=== PATIENT | female | born 1945 | race Caucasian/White ===

== ENCOUNTER 2020-05-31 07:06 | Inpatient (IN) | payer MEDICARE ==
[~2020-05-31] VITALS: Ht 162.6 cm; Wt 100.0 kg
[~2020-05-31 07:06] MED LIST: AMLO-187 PO; HYDR-2145 PO
[2020-05-31] MEDS ORDERED: dilTIAZem IV PUSH 25 MG/5 ML VIAL IVP ONE (07:30)
[2020-05-31 07:34] LABS: BASO # 0.1 x10^3/uL (0.0-0.2); BASO % 1 % (0-3); EOS # 0.7 x10^3/uL (0.0-0.7); EOS % 8 % (0-3); HEMATOCRIT 42.8 % (36.0-47.0); HEMOGLOBIN 14.5 g/dL (12.0-15.5); LYMPH # 1.7 x10^3/uL (1.0-4.8); LYMPH % 22 % (24-48); MEAN CORPUSCULAR HEMOGLOBIN 30 pg (25-35); MEAN CORPUSCULAR HGB CONC 34 g/dL (31-37); MEAN CORPUSCULAR VOLUME 87 fL (79-100); MONO # 0.7 x10^3/uL (0.0-1.1); MONO % 10 % (0-9); NEUT # 4.6 x10^3/uL (1.8-7.7); NEUT % 59 % (31-73); PLATELET COUNT 287 x10^3/uL (140-400); RED CELL DISTRIBUTION WIDTH 15.4 % (11.5-14.5); WHITE BLOOD COUNT 7.8 x10^3/uL (4.0-11.0)
--- NOTE | 2020-05-31 07:37 | PHYS DOC ---
Past Medical History Past Medical History: Hypertension Additional Past Medical Histor: heart murmur, COVID 19 Past Surgical History: Hysterectomy Smoking Status: Never Smoker Alcohol Use: None General Adult EDM: Chief Complaint: SHORTNESS OF BREATH HPI: HPI: Patient is a 74 year old female who was brought here by EMS from home due to trouble breathing and left arm tingling sensation. EMS did an EKG on route, showed atrial fibrillation with RVR. Patient denies any chest pain, she denies any history of atrial fibrillation. Patient was admitted here on April 02, 2020, diagnosed with COVID-19 infection. Patient says she did get better from the infection. Patient denies any abdominal pain, no nausea vomiting. Patient denied headache, no cough, no fever. Review of Systems: Review of Systems: Constitutional: Denies fever or chills. [] Eyes: Denies change in visual acuity. [] HENT: Denies nasal congestion or sore throat. [] Respiratory: Denies cough, positive for trouble breathing Cardiovascular: Denies chest pain or edema. [] GI: Denies abdominal pain, nausea, vomiting, bloody stools or diarrhea. [] : Denies dysuria. [] Musculoskeletal: Denies back pain or joint pain. [] Integument: Denies rash. [] Neurologic: Denies headache, focal weakness or sensory changes. [] Endocrine: Denies polyuria or polydipsia. [] Lymphatic: Denies swollen glands. [] Psychiatric: Denies depression or anxiety. [] Heart Score: Risk Factors: Risk Factors: DM, Current or recent (<one month) smoker, HTN, HLP, family history of CAD, obesity. Risk Scores: Score 0 - 3: 2.5% MACE over next 6 weeks - Discharge Home Score 4 - 6: 20.3% MACE over next 6 weeks - Admit for Clinical Observation Score 7 - 10: 72.7% MACE over next 6 weeks - Early Invasive Strategies Current Medications: Current Medications Medications (Trade) Dose Ordered Sig/Sherrill Start Time Stop Time Status Last Admin Dose Admin Diltiazem HCl (Cardizem Iv Push) 20 mg 1X ONCE 05/31/20 07:30 05/31/20 07:31 DC Allergies: Allergies: Allergies Coded Allergies Type Severity Reaction Last Updated Verified lisinopril Allergy Unknown 04/02/20 Yes Physical Exam: PE: Constitutional: Well developed, well nourished, no acute distress, non-toxic appearance. [] HENT: Normocephalic, atraumatic, bilateral external ears normal, oropharynx moist, no oral exudates, nose normal. [] Eyes: PERRLA, EOMI, conjunctiva normal, no discharge. [] Neck: Normal range of motion, no tenderness, supple, no stridor. [] Cardiovascular:Heart rate regular rhythm, no murmur [] Lungs & Thorax: Bilateral breath sounds clear to auscultation [] Abdomen: Bowel sounds normal, soft, no tenderness, no masses, no pulsatile masses. [] Skin: Warm, dry, no erythema, no rash. [] Back: No tenderness, no CVA tenderness. [] Extremities: No tenderness, no cyanosis, no clubbing, ROM intact, no edema. [] Neurologic: Alert and oriented X 3, normal motor function, normal sensory function, no focal deficits noted. [] Psychologic: Affect normal, judgement normal, mood normal. [] Current Patient Data: Labs: Laboratory Tests Test 05/31/20 07:21 White Blood Count 7.8 x10^3/uL Red Blood Count 4.90 x10^6/uL Hemoglobin 14.5 g/dL Hematocrit 42.8 % Mean Corpuscular Volume 87 fL Mean Corpuscular Hemoglobin 30 pg Mean Corpuscular Hemoglobin Concent 34 g/dL Red Cell Distribution Width 15.4 % Platelet Count 287 x10^3/uL Neutrophils (%) (Auto) 59 % Lymphocytes (%) (Auto) 22 % Monocytes (%) (Auto) 10 % Eosinophils (%) (Auto) 8 % Basophils (%) (Auto) 1 % Neutrophils # (Auto) 4.6 x10^3/uL Lymphocytes # (Auto) 1.7 x10^3/uL Monocytes # (Auto) 0.7 x10^3/uL Eosinophils # (Auto) 0.7 x10^3/uL Basophils # (Auto) 0.1 x10^3/uL Sodium Level 139 mmol/L Potassium Level 3.2 mmol/L Chloride Level 102 mmol/L Carbon Dioxide Level 24 mmol/L Anion Gap 13 Blood Urea Nitrogen 22 mg/dL Creatinine 1.1 mg/dL Estimated GFR (Cockcroft-Gault) 48.4 BUN/Creatinine Ratio 20 Glucose Level 116 mg/dL Calcium Level 9.9 mg/dL Magnesium Level 2.0 mg/dL Total Bilirubin 0.9 mg/dL Aspartate Amino Transf (AST/SGOT) 17 U/L Alanine Aminotransferase (ALT/SGPT) 21 U/L Alkaline Phosphatase 81 U/L Troponin I Quantitative < 0.017 ng/mL AA-Dgs-S-Type Natriuretic Peptide 157 pg/mL Total Protein 7.4 g/dL Albumin 3.4 g/dL Albumin/Globulin Ratio 0.9 Lipase 243 U/L Thyroid Stimulating Hormone (TSH) 3.658 uIU/mL Free Thyroxine 1.10 ng/dL Current Medications Medications (Trade) Dose Ordered Sig/Sherrill Route PRN Reason Start Time Stop Time Status Last Admin Dose Admin Diltiazem HCl (Cardizem Iv Push) 20 mg 1X ONCE IVP 05/31/20 07:30 05/31/20 07:31 DC 05/31/20 07:34 Diltiazem HCl 125 mg/Sodium Chloride 125 ml @ 5 mls/hr CONT PRN IV SEE I/O RECORD 05/31/20 08:30 05/31/20 08:36 Potassium Chloride (Klor-Con) 40 meq 1X ONCE PO 05/31/20 08:30 05/31/20 08:31 DC 05/31/20 08:34 Sodium Chloride 1,000 ml @ 1,000 mls/hr 1X ONCE IV 05/31/20 08:30 05/31/20 09:29 DC 05/31/20 08:36 Iohexol (Omnipaque 350 Mg/ml) 90 ml 1X ONCE IV 05/31/20 08:30 05/31/20 08:34 DC 05/31/20 09:00 Info (CONTRAST GIVEN -- Rx MONITORING) 1 each PRN DAILY PRN MC SEE COMMENTS 05/31/20 08:45 06/02/20 08:44 Digoxin (Lanoxin) 500 mcg 1X ONCE IV 05/31/20 09:45 05/31/20 09:46 DC Vital Signs: Vital Signs Date Time Temp Pulse Resp B/P (MAP) Pulse Ox O2 Delivery O2 Flow Rate FiO2 05/31/20 07:06 97.5 142 18 142/67 (92) 99 Room Air 97.5 EKG: EKG: EKG was done at 715, heart rate of 149 bpm, atrial fibrillation with RVR, no ST [facility] Radiology/Procedures: Radiology/Procedures: [][id number] [place] [address] IMAGING REPORT Signed PATIENT: NEW MURPHYUNT: [id number] : 1945 LOCATION: ER AGE: 74 SEX: F EXAM STATUS: REG ER ORD. PHYSICIAN: BLANCHE CHRISTINA DO REASON: chest pain PROCEDURE: PORTABLE CHEST 1V AP chest x-ray HISTORY: Chest pain. COMPARISON: Chest x-ray April 02, 2020. FINDINGS: Heart size normal. Aortic arch calcified plaque and mild tortuosity. No pneumothorax or pleural effusions. The left lower lobe opacity on the prior exam has resolved. The right lower lobe opacity on the prior exam has decreased, there is mild residual opacity remaining. Small calcified granuloma right apex stable. Bones unremarkable. IMPRESSION: Improved aeration at the lung bases, the left lower lobe infiltrate has resolved, the right lower lobe infiltrate has decreased. Electronically signed by: Eli Jerome MD (05/31/2020 7:54 AM) [id number] DICTATED and SIGNED BY: ELI JEROME MD DATE: 05/31/20 [id number] [id number] [place], [place] [id number] IMAGING REPORT Signed PATIENT: NEW MURPHYUNT: [id number] : 1945 LOCATION: ER AGE: 74 SEX: F EXAM STATUS: REG ER ORD. PHYSICIAN: BLANCHE CHRISTINA DO REASON: SOA, CHEST PAIN, TACHYPNIA, TACHYCARDIA PROCEDURE: CT ANGIOGRAPHY CHEST Examination: CT angiography chest with IV contrast HISTORY: History of shortness of breath, chest pain, tachycardia, tachypnea COMPARISON: None available TECHNIQUE: Axial CT and radiographic images of chest were performed with IV contrast. Coronal and sagittal 3-D MIP reformats performed Exposure: One or more of the following individualized dose reduction techniques were utilized for this examination: 1. Automated exposure control 2. Adjustment of the mA and/or kV according to patient size 3. Use of iterative reconstruction technique FINDINGS: The visualized third and grossly appears unremarkable. The central airways grossly appears unremarkable. The ascending aorta measures 4 cm in transverse dimension. Heart size grossly appears unremarkable. Mild coronary artery calcifications There is no evidence of filling defect identified in the main pulmonary arterial trunk and right and left main pulmonary arteries and the visualized lobar, segmental branches of the pulmonary arteries. Few nodular tiny airspace opacities identified in the left lower lobe of the lung likely atelectasis or infiltrates. 3 mm nodule left lower lobe of the lung. The visualized liver, adrenals grossly appears unremarkable. There is a cystic structure identified in the anterior aspect of the spleen measuring 2.2 cm could be a cyst Moderate degenerative changes thoracic spine. IMPRESSION: 1. No evidence of pulmonary embolism. 2. Few nodular airspace opacities identified in the left lower lobe of the lung likely atelectasis or infiltrates. Follow-up to resolution. 3. 3 mm nodule left lower lobe of the lung. Follow-up per Fleischner Society guidelines with a follow-up CT in 6-12 months. 4. Mild aneurysmal change ascending aorta. Electronically signed by: Chivo Marshall MD (05/31/2020 9:41 AM) [id number] DICTATED and SIGNED BY: CHIVO MARSHALL MD DATE: 05/31/20 [id number] Course & Med Decision Making: Course & Med Decision Making Pertinent Labs and Imaging studies reviewed. (See chart for details) Patient is a 74-year-old female who presented to ER due to trouble breathing, left arm tingling sensation, she was found to have A. fib with RVR. Patient was started on Cardizem IV bolus and Cardizem drip. CTA her chest did not show any evidence of PE. Patient had Covid infection 2 months ago. Patient will be admitted to hospital, cardiology be consulted for atrial fibrillation. Discussed with Dr. Moss, hospitalist, he will admit the patient for further evaluation and treatment. Maribel Disclaimer: Maribel Disclaimer: This electronic medical record was generated, in whole or in part, using a voice recognition dictation system. Departure Departure Impression: Primary Impression: Atrial fibrillation with RVR Disposition: ADMITTED INPT THIS HOSP Admitting Physician: [facility] (Dr. Moss) Condition: IMPROVED Referrals: MARY WILD (PCP) BLANCHE CHRISTINA DO May 31, 2020 07:37
[2020-05-31 07:51] LABS: CALCIUM 9.9 mg/dL (8.5-10.1); CREATININE 1.1 mg/dL (0.6-1.0); GFR 48.4; POTASSIUM 3.2 mmol/L (3.5-5.1)
[2020-05-31 07:56] LABS: ALBUMIN 3.4 g/dL (3.4-5.0); ALBUMIN/GLOBULIN RATIO 0.9 (1.0-1.7); TOTAL BILIRUBIN 0.9 mg/dL (0.2-1.0); TOTAL PROTEIN 7.4 g/dL (6.4-8.2)
--- NOTE | 2020-05-31 07:57 | RAD ---
AP chest x-ray HISTORY: Chest pain. COMPARISON: Chest x-ray April 02, 2020. FINDINGS: Heart size normal. Aortic arch calcified plaque and mild tortuosity. No pneumothorax or ple ural effusions. The left lower lobe opacity on the prior exam has resolved. The right lower lobe opac ity on the prior exam has decreased, there is mild residual opacity remaining. Small calcified granul best right apex stable. Bones unremarkable. IMPRESSION: Improved aeration at the lung bases, the left lower lobe infiltrate has resolved, the rig ht lower lobe infiltrate has decreased. Electronically signed by: Christian Jerome MD (05/31/2020 7:54 AM) [id number]
[2020-05-31 08:02] LABS: FREE T4 1.1 ng/dL (0.76-1.46); THYROID STIM HORMONE (TSH) 3.658 uIU/mL (0.358-3.74)
[2020-05-31] MEDS ORDERED: IV NORMAL SALINE 1000ML BAG 1,000 ML IV ONE (08:30)
[2020-05-31] MEDS ORDERED: IOHEXOL 350 MG/ML 100 ML VIAL. IV ONE (08:30)
[2020-05-31] MEDS ORDERED: POTASSIUM CHLORIDE 10 MEQ TABLET.ER. PO ONE (08:30)
[2020-05-31] MEDS ORDERED: CONTRAST GIVEN. MC PRN (08:45)
--- NOTE | 2020-05-31 08:54 | EKG ---
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
[2020-05-31 09:36] LABS: BILIRUBIN,URINE NEGATIVE (NEG); CLARITY,URINE CLEAR; COLOR,URINE YELLOW; NITRITE,URINE NEGATIVE (NEG); PH,URINE 6.5 (<5.0-8.0); PROTEIN,URINE NEGATIVE (NEG-TRACE); UROBILINOGEN,URINE 0.2 mg/dL (0.2 mg/dL)
--- NOTE | 2020-05-31 09:44 | RAD ---
Examination: CT angiography chest with IV contrast HISTORY: History of shortness of breath, chest pain, tachycardia, tachypnea COMPARISON: None available TECHNIQUE: Axial CT and radiographic images of chest were performed with IV contrast. Coronal and sag ittal 3-D MIP reformats performed Exposure: One or more of the following individualized dose reduction techniques were utilized for thi s examination: 1. Automated exposure control 2. Adjustment of the mA and/or kV according to patient size 3. Use of iterative reconstruction technique FINDINGS: The visualized third and grossly appears unremarkable. The central airways grossly appears unremarkab le. The ascending aorta measures 4 cm in transverse dimension. Heart size grossly appears unremarkabl e. Mild coronary artery calcifications There is no evidence of filling defect identified in the main pulmonary arterial trunk and right and left main pulmonary arteries and the visualized lobar, segmental branches of the pulmonary arteries. Few nodular tiny airspace opacities identified in the left lower lobe of the lung likely atelectasis or infiltrates. 3 mm nodule left lower lobe of the lung. The visualized liver, adrenals grossly appea rs unremarkable. There is a cystic structure identified in the anterior aspect of the spleen measurin g 2.2 cm could be a cyst Moderate degenerative changes thoracic spine. IMPRESSION: 1. No evidence of pulmonary embolism. 2. Few nodular airspace opacities identified in the left lower lobe of the lung likely atelectasis o r infiltrates. Follow-up to resolution. 3. 3 mm nodule left lower lobe of the lung. Follow-up per Fleischner Society guidelines with a follo w-up CT in 6-12 months. 4. Mild aneurysmal change ascending aorta. Electronically signed by: Chivo Marshall MD (05/31/2020 9:41 AM) [id number]
[2020-05-31] MEDS ORDERED: DIGOXIN IV 500 MCG/2 ML AMPUL. IV ONE (09:45)
[2020-05-31 09:51] LABS: RBC,URINE OCC /HPF (0-2)
[2020-05-31 09:52] LABS: BACTERIA,URINE FEW /HPF (0-FEW)
--- NOTE | 2020-05-31 10:20 | PDOC2 ---
LUZ MARINA SIGALA ELECTRICAL CAD TECHNICIAN 05/31/20 1020: CARDIAC CONSULT DATE OF CONSULT Date of Consult DATE: 05/31/20 TIME: 1130 REASON FOR CONSULT Reason for Consult: AFIB RVR REFERRING PHYSICIAN Referring Physician: Jean SOURCE Source: Chart review, Patient HISTORY OF PRESENT ILLNESS HISTORY OF PRESENT ILLNESS This is a pleasant 74 yo female admitted for complains of palpitations. She woke up this morning and her monitor shows that her HR was fast and irregular. Also with SOA and palpitations and dizziness. No nausea or vomiting. No recent fever or chills. No Increased leg swelling. No prior test for CRISTY. No recent reese geries. No hx of CVA or CAD. No falls, injury, arrhythmias or past syncope. No exertional CP and no MCRAE. No hx of VTE. She takes norvasc and intermittent use of ASA. She did have Covid-19 on 04/02/2020. PAST MEDICAL HISTORY Cardiovascular: HTN Pulmonary: Pneumonia, Other (Covid-19) CENTRAL NERVOUS SYSTEM: Other (No pertinent history) GI: Constipation Heme/Onc: No pertinent hx Hepatobiliary: Hep A/B/C (as a child) Psych: No pertinent hx Musculoskeletal: Osteoarthritis Rheumatologic: No pertinent hx Infectious disease: No pertinent hx Renal/: UTI Endocrine: No pertinent hx Dermatology: No pertinent hx PAST SURGICAL HISTORY Past Surgical History: Arthroscopy (right ankle), , Hysterectomy FAMILY HISTORY Family History: Heart Disease (mother CHF) SOCIAL HISTORY Smoke: No ALCOHOL: none Drugs: None Lives: with Family (spouse) CURRENT MEDICATIONS CURRENT MEDICATIONS Current Medications Medications (Trade) Dose Ordered Sig/Sherrill Route PRN Reason Start Time Stop Time Status Last Admin Dose Admin Diltiazem HCl (Cardizem Iv Push) 20 mg 1X ONCE IVP 05/31/20 07:30 05/31/20 07:31 DC 05/31/20 07:34 Diltiazem HCl 125 mg/Sodium Chloride 125 ml @ 5 mls/hr CONT PRN IV SEE I/O RECORD 05/31/20 08:30 05/31/20 08:36 Potassium Chloride (Klor-Con) 40 meq 1X ONCE PO 05/31/20 08:30 05/31/20 08:31 DC 05/31/20 08:34 Sodium Chloride 1,000 ml @ 1,000 mls/hr 1X ONCE IV 05/31/20 08:30 05/31/20 09:29 DC 05/31/20 08:36 Iohexol (Omnipaque 350 Mg/ml) 90 ml 1X ONCE IV 05/31/20 08:30 05/31/20 08:34 DC 05/31/20 09:00 Digoxin (Lanoxin) 500 mcg 1X ONCE IV 05/31/20 09:45 05/31/20 09:46 DC 05/31/20 09:57 ALLERGIES ALLERGIES: Coded Allergies: lisinopril (Verified Allergy, Unknown, 04/02/20) ROS Review of System 14 point ROS evaluated with pertinent positives noted per HPI PHYSICAL EXAM General: Alert, Oriented X3, Cooperative, No acute distress HEENT: Atraumatic, Mucous membr. moist/pink Lungs: Clear to auscultation, Normal air movement Heart: Regular rate (SR), Normal S1, Normal S2, No murmurs Abdomen: Soft, No tenderness Extremities: No cyanosis, No edema Skin: No breakdown, No significant lesion Neuro: Normal speech, Sensation intact Psych/Mental Status: Mental status NL, Mood NL MUSCULOSKELETAL: Osteoarthritic changes both hands VITALS/I&O VITALS/I&O: Vital Signs Date Time Temp Pulse Resp B/P (MAP) Pulse Ox O2 Delivery O2 Flow Rate FiO2 05/31/20 09:57 117 144/79 05/31/20 07:06 97.5 18 99 Room Air 97.5 LABS Lab: Laboratory Tests Test 05/31/20 07:21 05/31/20 09:27 White Blood Count 7.8 x10^3/uL (4.0-11.0) Red Blood Count 4.90 x10^6/uL (3.50-5.40) Hemoglobin 14.5 g/dL (12.0-15.5) Hematocrit 42.8 % (36.0-47.0) Mean Corpuscular Volume 87 fL (79-100) Mean Corpuscular Hemoglobin 30 pg (25-35) Mean Corpuscular Hemoglobin Concent 34 g/dL (31-37) Red Cell Distribution Width 15.4 % (11.5-14.5) H Platelet Count 287 x10^3/uL (140-400) Neutrophils (%) (Auto) 59 % (31-73) Lymphocytes (%) (Auto) 22 % (24-48) L Monocytes (%) (Auto) 10 % (0-9) H Eosinophils (%) (Auto) 8 % (0-3) H Basophils (%) (Auto) 1 % (0-3) Neutrophils # (Auto) 4.6 x10^3/uL (1.8-7.7) Lymphocytes # (Auto) 1.7 x10^3/uL (1.0-4.8) Monocytes # (Auto) 0.7 x10^3/uL (0.0-1.1) Eosinophils # (Auto) 0.7 x10^3/uL (0.0-0.7) Basophils # (Auto) 0.1 x10^3/uL (0.0-0.2) Sodium Level 139 mmol/L (136-145) Potassium Level 3.2 mmol/L (3.5-5.1) L Chloride Level 102 mmol/L (98-107) Carbon Dioxide Level 24 mmol/L (21-32) Anion Gap 13 (6-14) Blood Urea Nitrogen 22 mg/dL (7-20) H Creatinine 1.1 mg/dL (0.6-1.0) H Estimated GFR (Cockcroft-Gault) 48.4 BUN/Creatinine Ratio 20 (6-20) Glucose Level 116 mg/dL (70-99) H Calcium Level 9.9 mg/dL (8.5-10.1) Magnesium Level 2.0 mg/dL (1.8-2.4) Total Bilirubin 0.9 mg/dL (0.2-1.0) Aspartate Amino Transferase (AST) 17 U/L (15-37) Alanine Aminotransferase (ALT) 21 U/L (14-59) Alkaline Phosphatase 81 U/L (46-116) Troponin I Quantitative < 0.017 ng/mL (0.000-0.055) MF-[id number]-[id number]-Type Natriuretic Peptide 157 pg/mL (0-449) Total Protein 7.4 g/dL (6.4-8.2) Albumin 3.4 g/dL (3.4-5.0) Albumin/Globulin Ratio 0.9 (1.0-1.7) L Lipase 243 U/L (73-393) Thyroid Stimulating Hormone (TSH) 3.658 uIU/mL (0.358-3.74) Free Thyroxine 1.10 ng/dL (0.76-1.46) Urine Collection Type Unknown Urine Color Yellow Urine Clarity Clear Urine pH 6.5 (<5.0-8.0) Urine Specific Lead 1.020 (1.000-1.030) Urine Protein Negative mg/dL (NEG-TRACE) Urine Glucose (UA) Negative mg/dL (NEG) Urine Ketones (Stick) Trace mg/dL (NEG) Urine Blood Negative (NEG) Urine Nitrite Negative (NEG) Urine Bilirubin Negative (NEG) Urine Urobilinogen Dipstick 0.2 mg/dL (0.2 mg/dL) Urine Leukocyte Esterase Small (NEG) Urine RBC Occ /HPF (0-2) Urine WBC 1-4 /HPF (0-4) Urine Squamous Epithelial Cells Many /LPF Urine Bacteria Few /HPF (0-FEW) Urine Mucus Slight /LPF Laboratory Tests 05/31/20 07:21 Laboratory Tests 05/31/20 07:21 ASSESSMENT/PLAN ASSESSMENT/PLAN 1. AFIB RVR: Refractory with digoxin and cardizem drip and converted to SR after IV lopressor. New onset 2. HTN: on home norvasc. 3. Mild KE 4. Mild troponin elevation: Peaked at 0.09. Due to RVR. Now SR, EKG SR with no acute ST-T wave changes. Demand mediated. CP free 5. Recovered Covid-19: 03/2020 Recommendations 1. Metoprolol tartrate 25 mg bid. Full dose ECASA 2. DC cardizem drip 3. MCOT and will note AFIB burden and guide need for anticoagulation 4. Consider outpt CRISTY w/u 5. No further norvasc with start of BB 6. Outpt ischemic workup. Follow up in office as scheduled 7. May DC this evening if TTE does not have any significant changes. 8. TTE and FLP ALANIS RAMIREZ MD 06/01/20 0853: CARDIAC CONSULT ASSESSMENT/PLAN ASSESSMENT/PLAN Patient seen and examined 05/31/20. Agree with VISUALLY IMPAIRED TEACHER's assessment and plan. Atrial fibrillation, newly diagnosed with RVR, presently back in sinus rhythm. Slight troponin elevation probably demand ischemia. Stop Cardizem drip and start metoprolol. 2D echo showed normal LV systolic function without any wall motion abnormalities. Agree with outpatient ischemic evaluation and event monitor recording. Thank you for your consultation LUZ MARINA SIGALA APRN May 31, 2020 10:20 ALANIS RAMIREZ MD Jun 01, 2020 08:53
[2020-05-31] MEDS ORDERED: METOPROLOL IV PUSH 5 MG/5 ML VIAL. IVP ONE (10:30)
[2020-05-31 11:05] VITALS: BP 134/95
--- NOTE | 2020-05-31 11:05 | PDOC1 ---
History and Physical Date of Admission Date of Admission DATE: 05/31/20 TIME: 11:05 Identification/Chief Complaint Chief Complaint seen in er with a fib rvr 74 year old female who was brought here by EMS from home due to trouble breathing and left arm tingling sensation. EMS did an EKG on route, showed atrial fibrillation with RVR. Patient denies any chest pain, she denies any history of atrial fibrillation. left arm tingling has been present for a few months since she had covid 19 admitted here on April 02, 2020, diagnosed with COVID-19 infection. Patient denies any abdominal pain, no nausea vomiting. Patient denied headache, no cough, no fever. cta neg for pe in er , cardiology consulted Past Medical History Past Medical History Past Medical History Past Medical History: Hypertension Additional Past Medical Histor: heart murmur, COVID 19 Past Surgical History: Hysterectomy Smoking Status: Never Smoker Alcohol Use: None Past Medical History Past Medical History Hypertension Past Surgical History Past Surgical History Hysterectomy Social History Smoke: No ALCOHOL: none Drugs: None fhx obesity Cardiovascular: HTN Musculoskeletal: Osteoarthritis Family History Family History: Hypertension Social History Smoke: No ALCOHOL: none Drugs: None Current Problem List Problem List Problems Medical Problems: (1) Atrial fibrillation with RVR Status: Acute Current Medications Current Medications Current Medications Diltiazem HCl (Cardizem Iv Push) 20 mg 1X ONCE IVP Last administered on 05/31/20at 07:34; Start 05/31/20 at 07:30; Stop 05/31/20 at 07:31; Status DC Diltiazem HCl 125 mg/Sodium Chloride 125 ml @ 5 mls/hr CONT PRN IV SEE I/O RECORD Last administered on 05/31/20at 08:36; Start 05/31/20 at 08:30; Stop 05/31/20 at 10:20; Status DC Potassium Chloride (Klor-Con) 40 meq 1X ONCE PO Last administered on 05/31/20at 08:34; Start 05/31/20 at 08:30; Stop 05/31/20 at 08:31; Status DC Sodium Chloride 1,000 ml @ 1,000 mls/hr 1X ONCE IV Last administered on 05/31/20at 08:36; Start 05/31/20 at 08:30; Stop 05/31/20 at 09:29; Status DC Iohexol (Omnipaque 350 Mg/ml) 90 ml 1X ONCE IV Last administered on 05/31/20at 09:00; Start 05/31/20 at 08:30; Stop 05/31/20 at 08:34; Status DC Info (CONTRAST GIVEN -- Rx MONITORING) 1 each PRN DAILY PRN MC SEE COMMENTS; Start 05/31/20 at 08:45; Stop 06/02/20 at 08:44 Digoxin (Lanoxin) 500 mcg 1X ONCE IV Last administered on 05/31/20at 09:57; Start 05/31/20 at 09:45; Stop 05/31/20 at 09:46; Status DC Metoprolol Tartrate (Lopressor) 25 mg Q6HRS PO ; Start 05/31/20 at 12:00 Metoprolol Tartrate (Lopressor Vial) 5 mg 1X ONCE IVP ; Start 05/31/20 at 10:30; Stop 05/31/20 at 10:31; Status DC Active Scripts Active Hydrochlorothiazide Tablet (Hydrochlorothiazide) 25 Mg Tablet 25 Mg PO DAILY 30 Days Amlodipine Besylate 10 Mg Tablet 10 Mg PO DAILY 30 Days Allergies Allergies: Coded Allergies: lisinopril (Verified Allergy, Unknown, 04/02/20) ROS Review of System Constitutional: Denies fever or chills. [] Eyes: Denies change in visual acuity. [] HENT: Denies nasal congestion or sore throat. [] Respiratory: Denies cough, positive for trouble breathing Cardiovascular: Denies chest pain or edema. [] GI: Denies abdominal pain, nausea, vomiting, bloody stools or diarrhea. [] : Denies dysuria. [] Musculoskeletal: Denies back pain or joint pain. [] Integument: Denies rash. [] Neurologic: Denies headache, focal weakness or sensory changes. [] Endocrine: Denies polyuria or polydipsia. [] Lymphatic: Denies swollen glands. [] Psychiatric: Denies depression or anxiety. [] 14 pt ros otherwise neg Physical Exam Physical Exam Constitutional: Well developed, well nourished, no acute distress, non-toxic appearance. [] HENT: Normocephalic, atraumatic, bilateral external ears normal, oropharynx moist, no oral exudates, nose normal. [] Eyes: PERRLA, EOMI, conjunctiva normal, no discharge. [] Neck: Normal range of motion, no tenderness, supple, no stridor. [] Cardiovascular:tachy rate irrr 124, no murmur [] Lungs & Thorax: Bilateral breath sounds clear to auscultation [] Abdomen: Bowel sounds normal, soft, no tenderness, no masses, no pulsatile masses. [] Skin: Warm, dry, no erythema, no rash. [] Back: No tenderness, no CVA tenderness. [] Extremities: No tenderness, no cyanosis, no clubbing, ROM intact, no edema. [] Neurologic: Alert and oriented X 3, normal motor function, normal sensory function, no focal deficits noted. [] Psychologic: Affect normal, judgment normal, mood normal. [] General: No acute distress Lungs: Clear to auscultation, Normal air movement Heart: irregularly irregular Breasts: Not examined Abdomen: Normal bowel sounds, Soft, No tenderness Rectal Exam: not examined PELVIC: Examination not indicated Extremities: No cyanosis Skin: No breakdown Neuro: Normal speech, Cranial nerves 3-12 NL Psych/Mental Status: Mental status NL, Mood NL Vitals Vitals Vital Signs Date Time Temp Pulse Resp B/P (MAP) Pulse Ox O2 Delivery O2 Flow Rate FiO2 05/31/20 09:57 117 144/79 05/31/20 07:06 97.5 18 99 Room Air 97.5 Labs Labs Laboratory Tests Test 05/31/20 07:21 05/31/20 09:27 White Blood Count 7.8 x10^3/uL (4.0-11.0) Red Blood Count 4.90 x10^6/uL (3.50-5.40) Hemoglobin 14.5 g/dL (12.0-15.5) Hematocrit 42.8 % (36.0-47.0) Mean Corpuscular Volume 87 fL (79-100) Mean Corpuscular Hemoglobin 30 pg (25-35) Mean Corpuscular Hemoglobin Concent 34 g/dL (31-37) Red Cell Distribution Width 15.4 % (11.5-14.5) Platelet Count 287 x10^3/uL (140-400) Neutrophils (%) (Auto) 59 % (31-73) Lymphocytes (%) (Auto) 22 % (24-48) Monocytes (%) (Auto) 10 % (0-9) Eosinophils (%) (Auto) 8 % (0-3) Basophils (%) (Auto) 1 % (0-3) Neutrophils # (Auto) 4.6 x10^3/uL (1.8-7.7) Lymphocytes # (Auto) 1.7 x10^3/uL (1.0-4.8) Monocytes # (Auto) 0.7 x10^3/uL (0.0-1.1) Eosinophils # (Auto) 0.7 x10^3/uL (0.0-0.7) Basophils # (Auto) 0.1 x10^3/uL (0.0-0.2) Sodium Level 139 mmol/L (136-145) Potassium Level 3.2 mmol/L (3.5-5.1) Chloride Level 102 mmol/L (98-107) Carbon Dioxide Level 24 mmol/L (21-32) Anion Gap 13 (6-14) Blood Urea Nitrogen 22 mg/dL (7-20) Creatinine 1.1 mg/dL (0.6-1.0) Estimated GFR (Cockcroft-Gault) 48.4 BUN/Creatinine Ratio 20 (6-20) Glucose Level 116 mg/dL (70-99) Calcium Level 9.9 mg/dL (8.5-10.1) Magnesium Level 2.0 mg/dL (1.8-2.4) Total Bilirubin 0.9 mg/dL (0.2-1.0) Aspartate Amino Transf (AST/SGOT) 17 U/L (15-37) Alanine Aminotransferase (ALT/SGPT) 21 U/L (14-59) Alkaline Phosphatase 81 U/L (46-116) Troponin I Quantitative < 0.017 ng/mL (0.000-0.055) QQ-Cwo-H-Type Natriuretic Peptide 157 pg/mL (0-449) Total Protein 7.4 g/dL (6.4-8.2) Albumin 3.4 g/dL (3.4-5.0) Albumin/Globulin Ratio 0.9 (1.0-1.7) Lipase 243 U/L (73-393) Thyroid Stimulating Hormone (TSH) 3.658 uIU/mL (0.358-3.74) Free Thyroxine 1.10 ng/dL (0.76-1.46) Urine Collection Type Unknown Urine Color Yellow Urine Clarity Clear Urine pH 6.5 (<5.0-8.0) Urine Specific Hoffman 1.020 (1.000-1.030) Urine Protein Negative mg/dL (NEG-TRACE) Urine Glucose (UA) Negative mg/dL (NEG) Urine Ketones (Stick) Trace mg/dL (NEG) Urine Blood Negative (NEG) Urine Nitrite Negative (NEG) Urine Bilirubin Negative (NEG) Urine Urobilinogen Dipstick 0.2 mg/dL (0.2 mg/dL) Urine Leukocyte Esterase Small (NEG) Urine RBC Occ /HPF (0-2) Urine WBC 1-4 /HPF (0-4) Urine Squamous Epithelial Cells Many /LPF Urine Bacteria Few /HPF (0-FEW) Urine Mucus Slight /LPF Laboratory Tests Test 05/31/20 07:21 05/31/20 09:27 White Blood Count 7.8 x10^3/uL (4.0-11.0) Red Blood Count 4.90 x10^6/uL (3.50-5.40) Hemoglobin 14.5 g/dL (12.0-15.5) Hematocrit 42.8 % (36.0-47.0) Mean Corpuscular Volume 87 fL (79-100) Mean Corpuscular Hemoglobin 30 pg (25-35) Mean Corpuscular Hemoglobin Concent 34 g/dL (31-37) Red Cell Distribution Width 15.4 % (11.5-14.5) Platelet Count 287 x10^3/uL (140-400) Neutrophils (%) (Auto) 59 % (31-73) Lymphocytes (%) (Auto) 22 % (24-48) Monocytes (%) (Auto) 10 % (0-9) Eosinophils (%) (Auto) 8 % (0-3) Basophils (%) (Auto) 1 % (0-3) Neutrophils # (Auto) 4.6 x10^3/uL (1.8-7.7) Lymphocytes # (Auto) 1.7 x10^3/uL (1.0-4.8) Monocytes # (Auto) 0.7 x10^3/uL (0.0-1.1) Eosinophils # (Auto) 0.7 x10^3/uL (0.0-0.7) Basophils # (Auto) 0.1 x10^3/uL (0.0-0.2) Sodium Level 139 mmol/L (136-145) Potassium Level 3.2 mmol/L (3.5-5.1) Chloride Level 102 mmol/L (98-107) Carbon Dioxide Level 24 mmol/L (21-32) Anion Gap 13 (6-14) Blood Urea Nitrogen 22 mg/dL (7-20) Creatinine 1.1 mg/dL (0.6-1.0) Estimated GFR (Cockcroft-Gault) 48.4 BUN/Creatinine Ratio 20 (6-20) Glucose Level 116 mg/dL (70-99) Calcium Level 9.9 mg/dL (8.5-10.1) Magnesium Level 2.0 mg/dL (1.8-2.4) Total Bilirubin 0.9 mg/dL (0.2-1.0) Aspartate Amino Transf (AST/SGOT) 17 U/L (15-37) Alanine Aminotransferase (ALT/SGPT) 21 U/L (14-59) Alkaline Phosphatase 81 U/L (46-116) Troponin I Quantitative < 0.017 ng/mL (0.000-0.055) JB-Aup-Q-Type Natriuretic Peptide 157 pg/mL (0-449) Total Protein 7.4 g/dL (6.4-8.2) Albumin 3.4 g/dL (3.4-5.0) Albumin/Globulin Ratio 0.9 (1.0-1.7) Lipase 243 U/L (73-393) Thyroid Stimulating Hormone (TSH) 3.658 uIU/mL (0.358-3.74) Free Thyroxine 1.10 ng/dL (0.76-1.46) Urine Collection Type Unknown Urine Color Yellow Urine Clarity Clear Urine pH 6.5 (<5.0-8.0) Urine Specific Hoffman 1.020 (1.000-1.030) Urine Protein Negative mg/dL (NEG-TRACE) Urine Glucose (UA) Negative mg/dL (NEG) Urine Ketones (Stick) Trace mg/dL (NEG) Urine Blood Negative (NEG) Urine Nitrite Negative (NEG) Urine Bilirubin Negative (NEG) Urine Urobilinogen Dipstick 0.2 mg/dL (0.2 mg/dL) Urine Leukocyte Esterase Small (NEG) Urine RBC Occ /HPF (0-2) Urine WBC 1-4 /HPF (0-4) Urine Squamous Epithelial Cells Many /LPF Urine Bacteria Few /HPF (0-FEW) Urine Mucus Slight /LPF Images Images PATIENT: NEW MURPHYUNT: [id number] : 1945 LOCATION: ER AGE: 74 SEX: F EXAM STATUS: REG ER ORD. PHYSICIAN: BLANCHE CHRISTINA DO REASON: chest pain PROCEDURE: PORTABLE CHEST 1V AP chest x-ray HISTORY: Chest pain. COMPARISON: Chest x-ray April 02, 2020. FINDINGS: Heart size normal. Aortic arch calcified plaque and mild tortuosity. No pneumothorax or pleural effusions. The left lower lobe opacity on the prior exam has resolved. The right lower lobe opacity on the prior exam has decreased, there is mild residual opacity remaining. Small calcified granuloma right apex stable. Bones unremarkable. IMPRESSION: Improved aeration at the lung bases, the left lower lobe infiltrate has resolved, the right lower lobe infiltrate has decreased. Electronically signed by: Eli Jerome MD (05/31/2020 7:54 AM) [id number] DICTATED and SIGNED BY: ELI JEROME MD PATIENT: NEW MURPHYCOUNT: [id number] : 1945 LOCATION: ER AGE: 74 SEX: F EXAM STATUS: REG ER ORD. PHYSICIAN: BLANCHE CHRISTINA DO REASON: SOA, CHEST PAIN, TACHYPNIA, TACHYCARDIA PROCEDURE: CT ANGIOGRAPHY CHEST Examination: CT angiography chest with IV contrast HISTORY: History of shortness of breath, chest pain, tachycardia, tachypnea COMPARISON: None available TECHNIQUE: Axial CT and radiographic images of chest were performed with IV contrast. Coronal and sagittal 3-D MIP reformats performed Exposure: One or more of the following individualized dose reduction techniques were utilized for this examination: 1. Automated exposure control 2. Adjustment of the mA and/or kV according to patient size 3. Use of iterative reconstruction technique FINDINGS: The visualized third and grossly appears unremarkable. The central airways grossly appears unremarkable. The ascending aorta measures 4 cm in transverse dimension. Heart size grossly appears unremarkable. Mild coronary artery calcifications There is no evidence of filling defect identified in the main pulmonary arterial trunk and right and left main pulmonary arteries and the visualized lobar, segmental branches of the pulmonary arteries. Few nodular tiny airspace opacities identified in the left lower lobe of the lung likely atelectasis or infiltrates. 3 mm nodule left lower lobe of the lung. The visualized liver, adrenals grossly appears unremarkable. There is a cystic structure identified in the anterior aspect of the spleen measuring 2.2 cm could be a cyst Moderate degenerative changes thoracic spine. IMPRESSION: 1. No evidence of pulmonary embolism. 2. Few nodular airspace opacities identified in the left lower lobe of the lung likely atelectasis or infiltrates. Follow-up to resolution. 3. 3 mm nodule left lower lobe of the lung. Follow-up per Fleischner Society guidelines with a follow-up CT in 6-12 months. 4. Mild aneurysmal change ascending aorta. Electronically signed by: Chivo Marshall MD (05/31/2020 9:41 AM) [id number] DICTATED and SIGNED BY: CHIVO MARSHALL MD DATE: 05/31/20 [id number] VTE Prophylaxis Ordered VTE Prophylaxis Devices: Yes VTE Pharmacological Prophylaxi: Yes Assessment/Plan Assessment/Plan Impression: Atrial fibrillation with RVR MORBID OBESITY Hypertension hypokalemia, LIKELY DUE TO HCTZ mild troponin i elevation likelt type ii ischemia due to a fib rvr ACUTE RENAL INJURY, ACUTE VASOMOTOR NEPHROPATHY, BASELINE CR 0.29 MAR 2020 ADMITTED cvc bed CARDIOLOGY CONSULT ECHO SOON home meds free t4 HOLD NORVASC AND D/C HCTZ Avoid nephrotoxic meds dvt prophylaxis DICTATED Justifications for Admission Other Justification Failure of outpatient antibiotics, generalized weakness, PUI DANIEL ALMAZAN MD May 31, 2020 11:05
[2020-05-31] MEDS ORDERED: ALBUTEROL SULFATE 2.5 MG/3 ML NEBU. NEB PRN (12:00)
[2020-05-31] MEDS ORDERED: ACETAMINOPHEN 325 MG TABLET. PO PRN (12:00)
[2020-05-31] MEDS ORDERED: LORazepam 0.5 MG TABLET PO PRN (12:00)
[2020-05-31] MEDS ORDERED: ONDANSETRON PF 4 MG/2 ML VIAL. IV PRN (12:00)
[2020-05-31] MEDS ORDERED: MAG HYDROX/ALUMINUM HYD/SIMETH 30 ML ORAL.SUSP PO PRN (12:00)
[2020-05-31] MEDS ORDERED: guaiFENesin ORAL 200 MG/10 ML LIQUID. PO PRN (12:00)
[2020-05-31] MEDS ORDERED: 0.9 % SODIUM CHLORIDE 10 ML DISP.SYRIN. IV PRN (12:00)
[2020-05-31] MEDS ORDERED: METOPROLOL TART IMMED RELEASE 25 MG TABLET. PO SCH ×2 (12:00→21:00)
[2020-05-31] MEDS ORDERED: DOCUSATE SODIUM 100 MG CAPSULE. PO PRN (12:00)
[2020-05-31] MEDS ORDERED: SODIUM PHOSPHATES 19/7GM 133 ML ENEMA. PR PRN (12:00)
[2020-05-31] MEDS ORDERED: IV NORMAL SALINE 1000ML BAG 1,000 ML IV SCH (12:00)
[2020-05-31] MEDS ORDERED: HYDR12.59 PO (12:01)
[2020-05-31] MEDS ORDERED: AMLO5TAB4 PO (12:01)
--- NOTE | 2020-05-31 12:13 | EKG ---
[facility] [address] [place] [address] Test Date: 2020-05-31 Test Time: 12:10:12 Pat Name: NEW MURPHY Department: Room: 260 1 Gender: F Assistant Activities Director: KENDALL : 1945 Requested By: LUZ MARINA SIGALA Order Number: [id number] Reading MD: Measurements Intervals [place]ier Rate: 62 P: 90 WA: 130 QRS: 29 QRSD: 78 T: 56 QT: 396 QTc: 404 Interpretive Statements SINUS RHYTHM NORMAL ECG RI6.02 Compared to ECG 05/31/2020 07:13:21 T-wave abnormality no longer present Possible ischemia no longer present
[2020-05-31 15:00] VITALS: BP 155/78
--- NOTE | 2020-05-31 15:22 | HP ---
ADMIT DATE: 05/31/2020 CHIEF COMPLAINT: Rapid heart rate, trouble breathing. HISTORY OF PRESENT ILLNESS: This pleasant 74-year-old female with no previous history of AFib has been documented. Presented to the ER with shortness of breath and rapid heart rate. She was taken to the ER by ambulance. EKG at that time showed AFib with RVR. She was recently admitted in 03/2020 with COVID-19 infection. Since that time, she has felt somewhat tired. Denies any chest pain, abdominal pain, nausea, or vomiting. No fever or cough today. CTA was negative for PE in the Emergency Room. The patient was started on IV diltiazem by Dr. Pena in the ER and I discussed the patient's care with him. The patient was admitted and Cardiology was consulted. PAST MEDICAL HISTORY: Significant for hypertension and COVID-19 pneumonia. PAST SURGICAL HISTORY: Hysterectomy. SOCIAL HISTORY: She does not smoke or use alcohol or illicit drugs. FAMILY HISTORY: Positive for hypertension. CURRENT MEDICATIONS: Prior to admission include Norvasc and hydrochlorothiazide. ALLERGIES: LISINOPRIL. REVIEW OF SYSTEMS: Denies fever or chills. Denies visual change or loss. Denies nasal congestion, sore throat, cough, but has had some trouble breathing. Denies chest pain or edema. Denies abdominal pain, vomiting, bloody stools, or dysuria. Denies joint pain or back pain, rash, headache, focal weakness, polyuria or polydipsia. Denies swollen glands, depression, or anxiety. PHYSICAL EXAMINATION: GENERAL: Well-developed, well-nourished alert female in no acute distress. NECK: Supple. HEENT: Throat and pharynx are clear. LUNGS: Clear to auscultation. CARDIOVASCULAR: Tachycardic rhythm, irregular rate and rhythm without murmur. LUNGS: Bilateral breath sounds are clear. ABDOMEN: Soft, obese without tenderness. EXTREMITIES: Without clubbing, cyanosis or edema. Capillary refill is less than 2 seconds. BACK: Without CVA tenderness. NEUROLOGIC: She is alert and oriented, moves all extremities well. Affect is normal. Memory is normal. She is pleasant, in no acute distress. BREASTS: Not examined. RECTAL: Deferred. PELVIC: ____. SKIN: Without cyanosis. NEUROLOGIC: Cranial nerves 2 to 12 are grossly intact. Extraocular muscles are intact. Visual goldstein are equal to confrontation. Muscles of mastication are symmetric and strong bilaterally. LABORATORY DATA: Show a white count 7.8, hemoglobin 14.5, MCV of 87, platelets 297,000. Sodium is 139, potassium 3.2, chloride 102, bicarbonate 24, BUN 22, creatinine 1.1, glucose 116, magnesium 2.0, AST 17, ALT 21. Troponin is less than 0.017, total protein 7.4, albumin 3.4, TSH 3.65, free T4 of 1.1. UA; trace, small, leukocyte esterase is positive, nitrite is negative. Chest x-ray shows improved aeration of the lung bases. CT of the chest shows no evidence of PE. There is a 3-mm nodule on the lower lobe of the lung. 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 ASSESSMENT: 1. This is a pleasant 74-year-old female with no previous documented history of atrial fibrillation. She presents with Afib and RVR. 2. Morbid obesity. 3 Hypertension. 4. Mild hypokalemia, likely due to hydrochlorothiazide. We will discontinue hydrochlorothiazide and Norvasc. 5. Mild troponin I elevation likely type 2 ischemia due to AFib, RVR. 6. Acute renal injury, likely vasomotor nephropathy with baseline creatinine of 0.9. PLAN: Admit cvc bed. Cardiology consult. ok to d./c this evening Echo reviewed. Home meds, but hold Norvasc and hydrochlorothiazide. Avoid nephrotoxic meds. DVT prophylaxis with Lovenox. Anticipated length of stay 1 days. The patient is baseline ambulatory. DANIEL ALMAZAN MD DR: LUIS ANGEL/jose luis JOB#: [id number] / [id number] MARY Wang
--- NOTE | 2020-05-31 17:43 | CARD ---
MR#: [id number] Date of Study: 05/31/2020 Ordering Physician: LUZ MARINA SIGALA, Referring Physician: LUZ MARINA SIGALA, Tech: Caridad Blakerakeshkatherine, [facility] APPROVED REPORT EXAM: Two-dimensional and M-mode echocardiogram with Doppler and color Doppler. Other Information Quality : AverageHR: 61bpm INDICATION Atrial Fibrillation RISK FACTORS Hypertension 2D DIMENSIONS RVDd3.4 (2.9-3.5cm)Left Atrium(2D)2.5 (1.6-4.0cm) IVSd1.3 (0.7-1.1cm)Aortic Root(2D)3.6 (2.0-3.7cm) LVDd4.5 (3.9-5.9cm)LVOT Diameter2.2 (1.8-2.4cm) PWd1.3 (0.7-1.1cm)LVDs2.9 (2.5-4.0cm) FS (%) 36.4 %SV61.0 ml LVEF(%)66.2 (>50%) Aortic Valve AoV Peak Juanjo.130.7cm/sAoV VTI27.8cm AO Peak GR.6.8mmHgLVOT Peak Juanjo.104.4cm/s AO Mean GR.4mmHgAVA (VMAX)2.97cm2 Mitral Valve MV E Agueuhup17.1cm/sMV DECEL [id number] MV A Qrxgxinp54.3cm/sE/A Ratio0.7 Pulmonary Valve PV Peak Hhcwwxzo24.2cm/s Tricuspid Valve TR P. Skhzvqtd984ek/sRAP [id number] TR Peak Gr.59yxEwDMKJ07dnCb Pulmonary Vein S1 Lvrofolp06.8cm/sD2 Zybcifqe03.6cm/s PVa [id number] LEFT VENTRICLE The left ventricle is normal size. There is moderate concentric left ventricular hypertrophy. The lef t ventricular systolic function is normal. The Ejection Fraction is 55-60%. There is normal LV segmen jhoana wall motion. Transmitral Doppler flow pattern is Grade I-abnormal relaxation pattern. RIGHT VENTRICLE The right ventricle is normal size. There is normal right ventricular wall thickness. The right ventr icular systolic function is normal. ATRIA The left atrium size is normal. The right atrium is borderline dilated. The interatrial septum is int act with no evidence for an atrial septal defect or patent foramen ovale as noted on 2-D or Doppler i maging. AORTIC VALVE The aortic valve is normal in structure and function. Doppler and Color Flow revealed no significant aortic regurgitation. There is no significant aortic valvular stenosis. Calculated aortic valve area is 3.2 cm2 with maximum pressure gradient of 7 mmHg and mean pressure gradient of 4 mmHg. MITRAL VALVE The mitral valve is normal in structure and function. There is no evidence of mitral valve prolapse. There is no mitral valve stenosis. Doppler and Color-flow revealed trace mitral regurgitation. TRICUSPID VALVE The tricuspid valve is normal in structure and function. Doppler and Color Flow revealed trace tricus pid regurgitation with an estimated PAP of 23 mmHg. There is no tricuspid valve stenosis. PULMONIC VALVE The pulmonic valve is not well visualized. Doppler and Color Flow revealed trace pulmonic valvular re gurgitation. GREAT VESSELS The aortic root is borderline enlarged measuring 3.6 cm. The ascending aorta is Mildly dilated measur ing 3.7 cm. The IVC is normal in size and collapses >50% with inspiration. PERICARDIAL EFFUSION There is no evidence of significant pericardial effusion. Critical Notification Critical Value: No <Conclusion> The left ventricular systolic function is normal. The Ejection Fraction is 55-60%. There is normal LV segmental wall motion. Transmitral Doppler flow pattern is Grade I-abnormal relaxation pattern. Trace mitral regurgitation. Trace tricuspid regurgitation with an estimated PAP of 23 mmHg. There is no evidence of significant pericardial effusion. Signed by : Rashawn Arambula, Electronically Approved : 05/31/2020 17:43:25
[2020-05-31] MEDS ORDERED: METO50TA6 PO (17:58)
[2020-05-31] MEDS ORDERED: ASPI325T8 PO (17:59)
--- NOTE | 2020-05-31 18:31 | NUR ---
Discharge Note: NEW MURPHY Discharge instructions and discharge home medications reviewed with Patient and a copy given. Patient aware about planned for outpatient stress test and event monitor to be send to patient home discussed. Scheduled hospital follow up date tih Dr. Arambula given to patient. All questions have been answered and understanding verbalized. The following instructions and handouts were given: afib and cardiac diet. Discontinued iv line and catheter intact. Patient discharged to home with self care.
[2020-05-31 20:10] LABS: CHOLESTEROL/HDL RATIO 3.3
[2020-05-31] MEDS ORDERED: ENOXAPARIN 40 MG/0.4 ML SYRINGE. SQ SCH (21:00)
--- NOTE | 2020-05-31 21:19 | PDOC3 ---
Discharge Summary Date of Admission: May 31, 2020 Date of Discharge: May 31, 2020 Follow-Up: 3-5 days Admitting Diagnosis comment: CHIEF COMPLAINT: Rapid heart rate, trouble breathing. HISTORY OF PRESENT ILLNESS: This pleasant 74-year-old female with no previous history of AFib has been documented. Presented to the ER with shortness of breath and rapid heart rate. She was taken to the ER by ambulance. EKG at that time showed AFib with RVR. She was recently admitted in 03/2020 with COVID-19 infection. Since that time, she has felt somewhat tired. Denies any chest pain, abdominal pain, nausea, or vomiting. No fever or cough today. CTA was negative for PE in the Emergency Room. The patient was started on IV diltiazem by Dr. Pena in the ER and I discussed the patient's care with him. The patient was admitted and Cardiology was consulted. PAST MEDICAL HISTORY: Significant for hypertension and COVID-19 pneumonia. PAST SURGICAL HISTORY: Hysterectomy. SOCIAL HISTORY: She does not smoke or use alcohol or illicit drugs. FAMILY HISTORY: Positive for hypertension. CURRENT MEDICATIONS: Prior to admission include Norvasc and hydrochlorothiazide. ALLERGIES: LISINOPRIL. REVIEW OF SYSTEMS: Denies fever or chills. Denies visual change or loss. Denies nasal congestion, sore throat, cough, but has had some trouble breathing. Denies chest pain or edema. Denies abdominal pain, vomiting, bloody stools, or dysuria. Denies joint pain or back pain, rash, headache, focal weakness, polyuria or polydipsia. Denies swollen glands, depression, or anxiety. PHYSICAL EXAMINATION: GENERAL: Well-developed, well-nourished alert female in no acute distress. NECK: Supple. HEENT: Throat and pharynx are clear. LUNGS: Clear to auscultation. CARDIOVASCULAR: Tachycardic rhythm, irregular rate and rhythm without murmur. LUNGS: Bilateral breath sounds are clear. ABDOMEN: Soft, obese without tenderness. EXTREMITIES: Without clubbing, cyanosis or edema. Capillary refill is less than 2 seconds. BACK: Without CVA tenderness. NEUROLOGIC: She is alert and oriented, moves all extremities well. Affect is normal. Memory is normal. She is pleasant, in no acute distress. BREASTS: Not examined. RECTAL: Deferred. PELVIC: ____. SKIN: Without cyanosis. NEUROLOGIC: Cranial nerves 2 to 12 are grossly intact. Extraocular muscles are intact. Visual goldstein are equal to confrontation. Muscles of mastication are symmetric and strong bilaterally. LABORATORY DATA: Show a white count 7.8, hemoglobin 14.5, MCV of 87, platelets 297,000. Sodium is 139, potassium 3.2, chloride 102, bicarbonate 24, BUN 22, creatinine 1.1, glucose 116, magnesium 2.0, AST 17, ALT 21. Troponin is less than 0.017, total protein 7.4, albumin 3.4, TSH 3.65, free T4 of 1.1. UA; trace, small, leukocyte esterase is positive, nitrite is negative. Chest x-ray shows improved aeration of the lung bases. CT of the chest shows no evidence of PE. There is a 3-mm nodule on the lower lobe of the lung. 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 ASSESSMENT: 1. This is a pleasant 74-year-old female with no previous documented history of atrial fibrillation. She presents with Afib and RVR. 2. Morbid obesity. 3 Hypertension. 4. Mild hypokalemia, likely due to hydrochlorothiazide. We will discontinue hydrochlorothiazide and Norvasc. 5. Mild troponin I elevation likely type 2 ischemia AFib, RVR. 6. Acute renal injury, likely vasomotor nephropathy with baseline creatinine of 0.9. PLAN: Admit ____. Cardiology consult. Echo soon. Home meds, but hold Norvasc and hydrochlorothiazide. Avoid nephrotoxic meds. DVT prophylaxis with Lovenox. Anticipated length of stay 3 days. The patient is baseline ambulatory. DANIEL ALMAZAN MD DR: LUIS ANGEL/jose luis JOB#: [id number] / [id number] MARY Wang DICTATED BY: DANIEL ALMAZAN MD 05/31/20 1205 SIGNED BY: FINAL DIAGNOSIS Problems Medical Problems: (1) Atrial fibrillation with RVR Status: Acute Brief Hospital Course Ms. Eldridge is a 74 old [sex] who presented with a fib rvr ] CONDITION AT DISCHARGE: Improved Discharge Medications Current Medications Diltiazem HCl (Cardizem Iv Push) 20 mg 1X ONCE IVP Last administered on 05/31/20at 07:34; Start 05/31/20 at 07:30; Stop 05/31/20 at 07:31; Status DC Diltiazem HCl 125 mg/Sodium Chloride 125 ml @ 5 mls/hr CONT PRN IV SEE I/O RECORD Last administered on 05/31/20at 08:36; Start 05/31/20 at 08:30; Stop 05/31/20 at 10:20; Status DC Potassium Chloride (Klor-Con) 40 meq 1X ONCE PO Last administered on 05/31/20at 08:34; Start 05/31/20 at 08:30; Stop 05/31/20 at 08:31; Status DC Sodium Chloride 1,000 ml @ 1,000 mls/hr 1X ONCE IV Last administered on 05/31/20at 08:36; Start 05/31/20 at 08:30; Stop 05/31/20 at 09:29; Status DC Iohexol (Omnipaque 350 Mg/ml) 90 ml 1X ONCE IV Last administered on 05/31/20at 09:00; Start 05/31/20 at 08:30; Stop 05/31/20 at 08:34; Status DC Info (CONTRAST GIVEN -- Rx MONITORING) 1 each PRN DAILY PRN MC SEE COMMENTS; Start 05/31/20 at 08:45; Stop 05/31/20 at 18:39; Status DC Digoxin (Lanoxin) 500 mcg 1X ONCE IV Last administered on 05/31/20at 09:57; Start 05/31/20 at 09:45; Stop 05/31/20 at 09:46; Status DC Metoprolol Tartrate (Lopressor) 25 mg Q6HRS PO Last administered on 05/31/20at 11:30; Start 05/31/20 at 12:00; Stop 05/31/20 at 11:55; Status DC Metoprolol Tartrate (Lopressor Vial) 5 mg 1X ONCE IVP Last administered on 05/31/20at 11:29; Start 05/31/20 at 10:30; Stop 05/31/20 at 10:31; Status DC Metoprolol Tartrate (Lopressor) 25 mg BID PO ; Start 05/31/20 at 21:00; Stop 05/31/20 at 18:39; Status DC Aspirin (Abdulkadir Aspirin) 325 mg DAILYWBKFT PO ; Start 06/01/20 at 08:00; Stop 05/31/20 at 18:39; Status DC Sodium Chloride (Normal Saline Flush) 3 ml QSHIFT PRN IV AFTER MEDS AND BLOOD DRAWS; Start 05/31/20 at 12:00; Stop 05/31/20 at 18:39; Status DC Sodium Chloride 1,000 ml @ 70 mls/hr [id number] IV Last administered on 05/31/20at 13:12; Start 05/31/20 at 12:00; Stop 05/31/20 at 18:39; Status DC Ondansetron HCl (Zofran) 4 mg PRN Q4HRS PRN IV NAUSEA/VOMITING; Start 05/31/20 at 12:00; Stop 05/31/20 at 18:39; Status DC Acetaminophen (Tylenol) 650 mg PRN Q4HRS PRN PO TEMP OVER 100.4F OR MILD PAIN; Start 05/31/20 at 12:00; Stop 05/31/20 at 18:39; Status DC Al Hydroxide/Mg Hydroxide (Mylanta Plus Xs) 30 ml PRN DAILY PRN PO HEARTBURN / GAS; Start 05/31/20 at 12:00; Stop 05/31/20 at 18:39; Status DC Sodium Monofluorophosphate (Fleet Adult) 133 ml PRN DAILY PRN GA CONSTIPATION; Start 05/31/20 at 12:00; Stop 05/31/20 at 18:39; Status DC Docusate Sodium (Colace) 100 mg PRN BID PRN PO HARD STOOLS; Start 05/31/20 at 12:00; Stop 05/31/20 at 18:39; Status DC Albuterol Sulfate (Ventolin Neb Soln) 2.5 mg PRN Q4HRS PRN NEB SHORTNESS OF BREATH; Start 05/31/20 at 12:00; Stop 05/31/20 at 18:39; Status DC Guaifenesin (Robitussin) 200 mg PRN Q4HRS PRN PO COUGH; Start 05/31/20 at 12:00; Stop 05/31/20 at 18:39; Status DC Lorazepam (Ativan) 0.5 mg PRN Q4HRS PRN PO ANXIETY / AGITATION; Start 05/31/20 at 12:00; Stop 05/31/20 at 18:39; Status DC Enoxaparin Sodium (Lovenox 40mg Syringe) 40 mg Q24H SQ ; Start 05/31/20 at 21:00; Stop 05/31/20 at 18:39; Status DC Active Scripts Active Reported Aspirin 325 Mg Tablet 325 Mg PO DAILY08 Metoprolol Tartrate 50 Mg Tablet 1 Tab PO BID Vital Signs Vital Signs Date Time Temp Pulse Resp B/P (MAP) Pulse Ox O2 Delivery O2 Flow Rate FiO2 05/31/20 15:00 98.1 68 22 155/78 (103) 98 Room Air 98.1 Labs Laboratory Tests Test 05/31/20 07:21 05/31/20 09:27 05/31/20 10:21 05/31/20 12:48 White Blood Count 7.8 x10^3/uL (4.0-11.0) Red Blood Count 4.90 x10^6/uL (3.50-5.40) Hemoglobin 14.5 g/dL (12.0-15.5) Hematocrit 42.8 % (36.0-47.0) Mean Corpuscular Volume 87 fL (79-100) Mean Corpuscular Hemoglobin 30 pg (25-35) Mean Corpuscular Hemoglobin Concent 34 g/dL (31-37) Red Cell Distribution Width 15.4 % (11.5-14.5) Platelet Count 287 x10^3/uL (140-400) Neutrophils (%) (Auto) 59 % (31-73) Lymphocytes (%) (Auto) 22 % (24-48) Monocytes (%) (Auto) 10 % (0-9) Eosinophils (%) (Auto) 8 % (0-3) Basophils (%) (Auto) 1 % (0-3) Neutrophils # (Auto) 4.6 x10^3/uL (1.8-7.7) Lymphocytes # (Auto) 1.7 x10^3/uL (1.0-4.8) Monocytes # (Auto) 0.7 x10^3/uL (0.0-1.1) Eosinophils # (Auto) 0.7 x10^3/uL (0.0-0.7) Basophils # (Auto) 0.1 x10^3/uL (0.0-0.2) Prothrombin Time 13.0 SEC (11.7-14.0) Prothromb Time International Ratio 1.0 (0.8-1.1) Activated Partial Thromboplast Time 32 SEC (24-38) Sodium Level 139 mmol/L (136-145) Potassium Level 3.2 mmol/L (3.5-5.1) Chloride Level 102 mmol/L (98-107) Carbon Dioxide Level 24 mmol/L (21-32) Anion Gap 13 (6-14) Blood Urea Nitrogen 22 mg/dL (7-20) Creatinine 1.1 mg/dL (0.6-1.0) Estimated GFR (Cockcroft-Gault) 48.4 BUN/Creatinine Ratio 20 (6-20) Glucose Level 116 mg/dL (70-99) Calcium Level 9.9 mg/dL (8.5-10.1) Magnesium Level 2.0 mg/dL (1.8-2.4) Total Bilirubin 0.9 mg/dL (0.2-1.0) Aspartate Amino Transf (AST/SGOT) 17 U/L (15-37) Alanine Aminotransferase (ALT/SGPT) 21 U/L (14-59) Alkaline Phosphatase 81 U/L (46-116) Troponin I Quantitative < 0.017 ng/mL (0.000-0.055) 0.059 ng/mL (0.000-0.055) 0.092 ng/mL (0.000-0.055) OP-Bap-H-Type Natriuretic Peptide 157 pg/mL (0-449) Total Protein 7.4 g/dL (6.4-8.2) Albumin 3.4 g/dL (3.4-5.0) Albumin/Globulin Ratio 0.9 (1.0-1.7) Triglycerides Level 100 mg/dL (0-150) Cholesterol Level 219 mg/dL (0-200) LDL Cholesterol, Calculated 133 mg/dL (0-100) VLDL Cholesterol, Calculated 20 mg/dL (0-40) Non-HDL Cholesterol Calculated 153 mg/dL (0-129) HDL Cholesterol 66 mg/dL (40-60) Cholesterol/HDL Ratio 3.3 Lipase 243 U/L (73-393) Thyroid Stimulating Hormone (TSH) 3.658 uIU/mL (0.358-3.74) Free Thyroxine 1.10 ng/dL (0.76-1.46) Urine Collection Type Unknown Urine Color Yellow Urine Clarity Clear Urine pH 6.5 (<5.0-8.0) Urine Specific Steele 1.020 (1.000-1.030) Urine Protein Negative mg/dL (NEG-TRACE) Urine Glucose (UA) Negative mg/dL (NEG) Urine Ketones (Stick) Trace mg/dL (NEG) Urine Blood Negative (NEG) Urine Nitrite Negative (NEG) Urine Bilirubin Negative (NEG) Urine Urobilinogen Dipstick 0.2 mg/dL (0.2 mg/dL) Urine Leukocyte Esterase Small (NEG) Urine RBC Occ /HPF (0-2) Urine WBC 1-4 /HPF (0-4) Urine Squamous Epithelial Cells Many /LPF Urine Bacteria Few /HPF (0-FEW) Urine Mucus Slight /LPF Laboratory Tests Test 05/31/20 07:21 05/31/20 09:27 05/31/20 10:21 05/31/20 12:48 White Blood Count 7.8 x10^3/uL (4.0-11.0) Red Blood Count 4.90 x10^6/uL (3.50-5.40) Hemoglobin 14.5 g/dL (12.0-15.5) Hematocrit 42.8 % (36.0-47.0) Mean Corpuscular Volume 87 fL (79-100) Mean Corpuscular Hemoglobin 30 pg (25-35) Mean Corpuscular Hemoglobin Concent 34 g/dL (31-37) Red Cell Distribution Width 15.4 % (11.5-14.5) Platelet Count 287 x10^3/uL (140-400) Neutrophils (%) (Auto) 59 % (31-73) Lymphocytes (%) (Auto) 22 % (24-48) Monocytes (%) (Auto) 10 % (0-9) Eosinophils (%) (Auto) 8 % (0-3) Basophils (%) (Auto) 1 % (0-3) Neutrophils # (Auto) 4.6 x10^3/uL (1.8-7.7) Lymphocytes # (Auto) 1.7 x10^3/uL (1.0-4.8) Monocytes # (Auto) 0.7 x10^3/uL (0.0-1.1) Eosinophils # (Auto) 0.7 x10^3/uL (0.0-0.7) Basophils # (Auto) 0.1 x10^3/uL (0.0-0.2) Prothrombin Time 13.0 SEC (11.7-14.0) Prothromb Time International Ratio 1.0 (0.8-1.1) Activated Partial Thromboplast Time 32 SEC (24-38) Sodium Level 139 mmol/L (136-145) Potassium Level 3.2 mmol/L (3.5-5.1) Chloride Level 102 mmol/L (98-107) Carbon Dioxide Level 24 mmol/L (21-32) Anion Gap 13 (6-14) Blood Urea Nitrogen 22 mg/dL (7-20) Creatinine 1.1 mg/dL (0.6-1.0) Estimated GFR (Cockcroft-Gault) 48.4 BUN/Creatinine Ratio 20 (6-20) Glucose Level 116 mg/dL (70-99) Calcium Level 9.9 mg/dL (8.5-10.1) Magnesium Level 2.0 mg/dL (1.8-2.4) Total Bilirubin 0.9 mg/dL (0.2-1.0) Aspartate Amino Transf (AST/SGOT) 17 U/L (15-37) Alanine Aminotransferase (ALT/SGPT) 21 U/L (14-59) Alkaline Phosphatase 81 U/L (46-116) Troponin I Quantitative < 0.017 ng/mL (0.000-0.055) 0.059 ng/mL (0.000-0.055) 0.092 ng/mL (0.000-0.055) BM-Tqx-B-Type Natriuretic Peptide 157 pg/mL (0-449) Total Protein 7.4 g/dL (6.4-8.2) Albumin 3.4 g/dL (3.4-5.0) Albumin/Globulin Ratio 0.9 (1.0-1.7) Triglycerides Level 100 mg/dL (0-150) Cholesterol Level 219 mg/dL (0-200) LDL Cholesterol, Calculated 133 mg/dL (0-100) VLDL Cholesterol, Calculated 20 mg/dL (0-40) Non-HDL Cholesterol Calculated 153 mg/dL (0-129) HDL Cholesterol 66 mg/dL (40-60) Cholesterol/HDL Ratio 3.3 Lipase 243 U/L (73-393) Thyroid Stimulating Hormone (TSH) 3.658 uIU/mL (0.358-3.74) Free Thyroxine 1.10 ng/dL (0.76-1.46) Urine Collection Type Unknown Urine Color Yellow Urine Clarity Clear Urine pH 6.5 (<5.0-8.0) Urine Specific Steele 1.020 (1.000-1.030) Urine Protein Negative mg/dL (NEG-TRACE) Urine Glucose (UA) Negative mg/dL (NEG) Urine Ketones (Stick) Trace mg/dL (NEG) Urine Blood Negative (NEG) Urine Nitrite Negative (NEG) Urine Bilirubin Negative (NEG) Urine Urobilinogen Dipstick 0.2 mg/dL (0.2 mg/dL) Urine Leukocyte Esterase Small (NEG) Urine RBC Occ /HPF (0-2) Urine WBC 1-4 /HPF (0-4) Urine Squamous Epithelial Cells Many /LPF Urine Bacteria Few /HPF (0-FEW) Urine Mucus Slight /LPF Allergies Allergies Coded Allergies Type Severity Reaction Last Updated Verified lisinopril Allergy Unknown 04/02/20 Yes Disposition/Orders: D/C to Home Justicifation of Admission Dx: Justifications for Admission: Justification of Admission Dx: No CHF: Cardiac Arrhythmias DANIEL ALMAZAN MD May 31, 2020 21:19
--- NOTE | 2020-05-31 21:20 | DISCH ---
DISCHARGE INSTRUCTIONS Condition on Discharge Condition on Discharge: Stable Activity After Discharge Activity Instructions for Disc: Activity as tolerated Lifting Instructions after Dis: No heavy lifting, No pulling or pushing Driving Instructions after Dis: Do not drive today Weight Bearing Status after Di: Full weight bearing, As tolerated Diet after Discharge Diet after Discharge: Cardiac Diet Texture: Regular Liquid Texture: Thin Liquid Checks after Discharge Checks after discharge: Check blood press - daily, Check your Temp as needed Contacting the DRMartín after DC Call your doctor for: If your condition worsens Follow-Up Follow up with: Primary care doctor Follow Up With: Dr. Arambula June 28 2020 at 2:15 pm Tel: [phone] Treatment/Equipment after DC Adaptive Equipment Issued: None Warfarin Follow-Up Warfarin Follow UP: see pcp in 3-7 days, cardiology as directed DANIEL ALMAZAN MD May 31, 2020 21:20
[2020-06-01] MEDS ORDERED: ASPIRIN 325 MG TABLET PO SCH (08:00)
== END 2020-05-31 18:39 | disposition home or self-care (01) | DRG 308 ==
LOC: ER 07:06 → 2 SOUTH 09:56
PROVIDERS: ADMIT Family Medicine; ATTEND Family Medicine
DX: I48.91 Unspecified atrial fibrillation (principal); N17.0 Acute kidney failure with tubular necrosis; I10 Essential (primary) hypertension; M19.90 Unspecified osteoarthritis, unspecified site; Z20.822 Contact with and (suspected) exposure to COVID-19; E66.01 Morbid (severe) obesity due to excess calories; E87.6 Hypokalemia; I99.8 Other disorder of circulatory system; T50.2X5A Adverse effect of carbonic-anhydrase inhibitors, benzothiadiazides and other diuretics, initial encounter; Y92.89 Other specified places as the place of occurrence of the external cause; Z68.37 Body mass index [BMI] 37.0-37.9, adult; Z90.710 Acquired absence of both cervix and uterus; Z88.8 Allergy status to other drugs, medicaments and biological substances; Z82.49 Family history of ischemic heart disease and other diseases of the circulatory system
CPT/HCPCS: 36415; 71045; 71275; 80053; 80061; 81001; 83690; 83735; 83880; 84439; 84443; 84484; 85025; 85610; 85730; 87086; 93005; 93306; 94640; 96365; 96366; 96375; 99285; J1160; J3490; J7030; Q9967; G0378

== ENCOUNTER → 2020-12-06 | Outpatient (CLI) | payer MEDICARE, BC ==
[~2020-12-06] MED LIST changes: +AMLO5TAB4 PO; +ASPI325T8 PO; +HYDR12.59 PO; +METO50TA6 PO
--- NOTE | 2020-12-06 13:28 | KCIC ---
CT of the chest without contrast Indication: [Pulmonary nodule follow-up] Comparison study: [CT angiography of the chest May 31, 2020] Technique: CT imaging of the chest was performed without contrast Findings: Heart size is normal. No pericardial effusion is identified. Scattered calcified and partially calcif ied mediastinal lymph nodes are noted without evidence of other significant adenopathy. There is a small sliding-type hiatal hernia. There is no pneumothorax. There is no pleural effusion. No new nodu les are identified. Small patchy nodular groundglass opacity in the basilar left lower lobe is unchan ged.3 mm nodular opacity in the left lower lobe is unchanged. Scattered subcentimeter calcified granu lomata are also noted. Limited visualization of the upper abdomen demonstrates a similar appearance o f the cystic lesion in the spleen. No acute osseous changes are identified. IMPRESSION: 1. Small nodular and groundglass opacity in the left lower lobe is unchanged. 3 mm nodule in the left lower lobe is unchanged. Recommend follow-up CT in one year. 2. Scattered calcified pulmonary granulomata and changes of granulomatous disease involving calcified mediastinal lymph nodes noted 3. No other acute cardiopulmonary process CT DOSING PQRS STATEMENT: One or more of the following individualized dose reduction techniques were utilized for this examinat ion: 1. Automated exposure control 2. Adjustment of the mA and/or kV according to patient size 3. Use of iterative reconstruction technique Electronically signed by: Shankar Willams MD (12/06/2020 1:25 PM) [id number]
== END ==
LOC: KCIC CT 12:27
PROVIDERS: ATTEND Nurse Practitioner
DX: Z09 Encounter for follow-up examination after completed treatment for conditions other than malignant neoplasm (principal); R91.1 Solitary pulmonary nodule; K44.9 Diaphragmatic hernia without obstruction or gangrene
CPT/HCPCS: 71250

== ENCOUNTER 2021-01-25 08:51 | Observation (INO) | payer MEDICARE ==
[~2021-01-25] VITALS: Ht 162.6 cm; Wt 105.3 kg
--- NOTE | 2021-01-25 09:26 | PHYS DOC ---
Past Medical History Past Medical History: A-Fib, Hypertension Additional Past Medical Histor: heart murmur, COVID 19 Past Surgical History: Hysterectomy Smoking Status: Former Smoker Alcohol Use: None General Adult EDM: Chief Complaint: NEURO SYMPTOMS/DEFICITS HPI: HPI: Patient is a 75 year old female who present to ER for evaluation of right-sided weakness, slurred speech, right-sided facial droop, when she woke up this morning at 5:30 AM. Patient went to sleep last night at 11 PM normal. Patient has history of hypertension, atrial fibrillation. Patient is on metoprolol, Eliquis. Patient denies any chest pain, no headache, no trouble breathing, no cough. Patient has history of Covid 19 infection. Patient denies any head injury. Review of Systems: Review of Systems: Constitutional: Denies fever or chills. [] Eyes: Denies change in visual acuity. [] HENT: Denies nasal congestion or sore throat. [] Respiratory: Denies cough or shortness of breath. [] Cardiovascular: Denies chest pain or edema. [] GI: Denies abdominal pain, nausea, vomiting, bloody stools or diarrhea. [] : Denies dysuria. [] Musculoskeletal: Denies back pain or joint pain. [] Integument: Denies rash. [] Neurologic: Denies headache, focal weakness or sensory changes. [] Endocrine: Denies polyuria or polydipsia. [] Lymphatic: Denies swollen glands. [] Psychiatric: Denies depression or anxiety. [] Heart Score: C/O Chest Pain: N/A Risk Factors: Risk Factors: DM, Current or recent (<one month) smoker, HTN, HLP, family history of CAD, obesity. Risk Scores: Score 0 - 3: 2.5% MACE over next 6 weeks - Discharge Home Score 4 - 6: 20.3% MACE over next 6 weeks - Admit for Clinical Observation Score 7 - 10: 72.7% MACE over next 6 weeks - Early Invasive Strategies Allergies: Allergies: Allergies Coded Allergies Type Severity Reaction Last Updated Verified lisinopril Allergy Intermediate 06/29/20 Yes Uncoded Allergies Type Severity Reaction Last Updated Verified NAFISA INHIBITOR Allergy Unknown 06/29/20 Physical Exam: PE: Constitutional: Well developed, well nourished, no acute distress, non-toxic appearance. [] HENT: Normocephalic, atraumatic, bilateral external ears normal, oropharynx moist, no oral exudates, nose normal. [] Eyes: PERRLA, EOMI, conjunctiva normal, no discharge. [] Neck: Normal range of motion, no tenderness, supple, no stridor. [] Cardiovascular:Heart rate regular rhythm, no murmur [] Lungs & Thorax: Bilateral breath sounds clear to auscultation [] Abdomen: Bowel sounds normal, soft, no tenderness, no masses, no pulsatile masses. [] Skin: Warm, dry, no erythema, no rash. [] Back: No tenderness, no CVA tenderness. [] Extremities: No tenderness, no cyanosis, no clubbing, ROM intact, no edema. [] Neurologic: Alert and oriented X 3, right-sided facial droop, slurred speech, right-sided weakness Psychologic: Affect normal, judgement normal, mood normal. [] Current Patient Data: Labs: Laboratory Tests Test 01/25/21 09:04 01/25/21 09:25 White Blood Count 9.2 x10^3/uL Red Blood Count 4.88 x10^6/uL Hemoglobin 14.9 g/dL Hematocrit 44.6 % Mean Corpuscular Volume 91 fL Mean Corpuscular Hemoglobin 31 pg Mean Corpuscular Hemoglobin Concent 33 g/dL Red Cell Distribution Width 13.5 % Platelet Count 296 x10^3/uL Neutrophils (%) (Auto) 59 % Lymphocytes (%) (Auto) 22 % Monocytes (%) (Auto) 11 % Eosinophils (%) (Auto) 8 % Basophils (%) (Auto) 1 % Neutrophils # (Auto) 5.4 x10^3/uL Lymphocytes # (Auto) 2.0 x10^3/uL Monocytes # (Auto) 1.0 x10^3/uL Eosinophils # (Auto) 0.7 x10^3/uL Basophils # (Auto) 0.1 x10^3/uL Sodium Level 141 mmol/L Potassium Level 4.0 mmol/L Chloride Level 104 mmol/L Carbon Dioxide Level 25 mmol/L Anion Gap 12 Blood Urea Nitrogen 22 mg/dL Creatinine 1.2 mg/dL Estimated GFR (Cockcroft-Gault) 43.7 BUN/Creatinine Ratio 18 Glucose Level 108 mg/dL Calcium Level 9.4 mg/dL Magnesium Level 2.2 mg/dL Total Bilirubin 1.0 mg/dL Aspartate Amino Transf (AST/SGOT) 23 U/L Alanine Aminotransferase (ALT/SGPT) 28 U/L Alkaline Phosphatase 92 U/L Troponin I Quantitative < 0.017 ng/mL AY-Cgu-M-Type Natriuretic Peptide 899 pg/mL Total Protein 7.9 g/dL Albumin 3.7 g/dL Albumin/Globulin Ratio 0.9 Urine Collection Type Unknown Urine Color Yellow Urine Clarity Clear Urine pH 6.0 Urine Specific [place] <=1.005 Urine Protein Negative mg/dL Urine Glucose (UA) Negative mg/dL Urine Ketones (Stick) Negative mg/dL Urine Blood Trace Urine Nitrite Negative Urine Bilirubin Negative Urine Urobilinogen Dipstick 0.2 mg/dL Urine Leukocyte Esterase Negative Urine RBC 1-2 /HPF Urine WBC Occ /HPF Urine Squamous Epithelial Cells Few /LPF Urine Renal Epithelial Cells Occ /LPF Urine Bacteria 0 /HPF EKG: EKG: EKG was done at 857, heart rate 122 bpm, atrial fibrillation with RVR Radiology/Procedures: Radiology/Procedures: [facility] [address] [place] [address] IMAGING REPORT Signed PATIENT: NEW MURPHY JACCOUNT: [id number] : 1945 LOCATION: ER AGE: 75 SEX: F EXAM STATUS: PRE ER ORD. PHYSICIAN: BLANCHE CHRISTINA DO REASON: slurred speech, right side facial droop PROCEDURE: CT CODE STROKE HEAD WO CT STROKE HEAD W/O History: Reason: slurred speech, right side facial droop / Spl. Instructions: / History: Comparison: None. Technique: Noncontrast CT imaging was performed of the head. Exposure: One or more of the following individualized dose reduction techniques were utilized for this examination: 1. Automated exposure control 2. Adjustment of the mA and/or kV according to patient size 3. Use of iterative reconstruction technique. Findings: No intracranial hemorrhage. No mass effect. No hydrocephalus. Ill-defined loss of linton-white eventration within the right anterior frontal lobe Mild additional foci of decreased attenuation within the hemispheric white matter, most often due to chronic microvascular ischemia. Imaged orbits are unremarkable. Imaged paranasal sinuses and mastoid air cells are clear. No acute calvarial fracture. Impression: 1. No acute intracranial hemorrhage. 2. Ill-defined loss of linton-white differentiation within the right anterior frontal lobe potentially artifactual. Recommend MRI to further evaluate for ischemic changes. FOR INTERNAL CODING PURPOSES Critical result: Findings discussed with Dr. Christina at 01/25/2021 9:28 AM. RESULT CODE: (C) Electronically signed by: Andrew Galan DO (01/25/2021 9:34 AM) [facility] DICTATED and SIGNED BY: ANDREW GALAN DO DATE: 01/25/21 [id number] [facility] [address] [place] [address] IMAGING REPORT Signed PATIENT: NEW MURPHY JACCOUNT: [id number] : 1945 LOCATION: ER AGE: 75 SEX: F EXAM STATUS: REG ER ORD. PHYSICIAN: BLANCHE CHRISTINA DO REASON: RIGHT SIDE FACIAL DROOP, R SIDE WEAKNESS, SLURRED SP PROCEDURE: CT ANGIOGRAPHY HEAD AND NECK CTA HEAD AND NECK W/WO CONTRAST History:Reason: RIGHT SIDE FACIAL DROOP, R SIDE WEAKNESS, SLURRED SP / Spl. Instructions: omni 300 60ml / History: Technique: After bolus of intravenous contrast, volumetric CT data acquisition was acquired of the head and neck. Multiplanar reconstruction images to include MIP and 3-D reconstruction images are submitted. Exposure: One or more of the following individualized dose reduction techniques were utilized for this examination: 1. Automated exposure control 2. Adjustment of the mA and/or kV according to patient size 3. Use of iterative reconstruction technique. Comparison: Noncontrast head CT January 25, 2021. Any determination of stenosis is based on NASCET criteria. Head CTA: ICA: No stenosis, occlusion or aneurysm. Atheromatous plaque within the carotid siphons. MCA: No stenosis, occlusion or aneurysm. GENI: No stenosis, occlusion or aneurysm. CLASSROOM TECHNOLOGY TECHNICIAN: No stenosis, occlusion or aneurysm. Basilar artery: No stenosis, occlusion or aneurysm. Distal vertebral arteries: No stenosis, occlusion or aneurysm. Previous seen linton-white indistinctness differentiation right frontal lobe is not well characterized on current examination. CT angiogram neck: Aortic arch: Mild atheromatous plaque within the aortic arch. Common carotid arteries: No stenosis, occlusion or dissection. Internal carotid arteries: No stenosis, occlusion or dissection. Minimal atheromatous plaque within the right carotid bifurcation. Tortuous internal ca rotid arteries. External carotid arteries: Patent Vertebral arteries: No stenosis, occlusion or dissection. Imaged lung apices are unremarkable. Soft tissues appear normal. Bones: Large maxillary concepcion. Moderate multilevel cervical sclerosis most promine nt C5-C6 and C6-C7. Facet arthropathy. Mild canal narrowing C5-C6. No high-grade canal narrowing. Multilevel neuroforaminal narrowing. Impression: 1. No arterial stenosis or occlusion within the head or neck. 2. Indistinct right frontal linton-white differentiation is not well characterized on current examination and may relate to artifact seen previously. MRI can definitively evaluate. FOR INTERNAL CODING PURPOSES Critical result: Findings discussed with Dr. Christina at 01/25/2021 11:45 AM. RESULT CODE: (C) Electronically signed by: Andrew Galan DO (01/25/2021 11:47 AM) [facility] DICTATED and SIGNED BY: ANDREW GALAN DO DATE: 01/25/21 [id number] Course & Med Decision Making: Course & Med Decision Making Pertinent Labs and Imaging studies reviewed. (See chart for details) Patient is a 75-year-old female who present to ER due to right-sided weakness, right-sided facial droop, slurred speech when she woke up this morning at 5:30 AM. Patient has history of atrial fibrillation, when she came to the ER, she was in atrial fib with RVR. She is on Eliquis. She is not a candidate for IV TPA because of CO on Eliquis and because of her symptoms. CT scan her head, CTA her head and neck did not show any acute problem. I discussed with the neurologist on-call Dr. Bautista who recommended admit the patient to hospital for stroke work-up. As 11:30 AM, I reexamined the patient, she no longer have slurred speech, she has symmetric facial expression, patient says she felt much better now. Dragon Disclaimer: Dragon Disclaimer: This electronic medical record was generated, in whole or in part, using a voice recognition dictation system. Departure Departure Impression: Primary Impression: TIA (transient ischemic attack) Disposition: ADMITTED INPATIENT Admitting Physician: RODERICK (Dr. MCDANIEL) Condition: IMPROVED Referrals: MARY WILD (PCP) BLANCHE CHRISTINA DO Jan 25, 2021 09:26
[2021-01-25 09:27] LABS: BASO # 0.1 x10^3/uL (0.0-0.2); BASO % 1 % (0-3); EOS # 0.7 x10^3/uL (0.0-0.7); EOS % 8 % (0-3); HEMATOCRIT 44.6 % (36.0-47.0); HEMOGLOBIN 14.9 g/dL (12.0-15.5); LYMPH % 22 % (24-48); MEAN CORPUSCULAR HEMOGLOBIN 31 pg (25-35); MEAN CORPUSCULAR HGB CONC 33 g/dL (31-37); MEAN CORPUSCULAR VOLUME 91 fL (79-100); MONO % 11 % (0-9); NEUT # 5.4 x10^3/uL (1.8-7.7); NEUT % 59 % (31-73); PLATELET COUNT 296 x10^3/uL (140-400); RED BLOOD COUNT 4.88 x10^6/uL (3.50-5.40); RED CELL DISTRIBUTION WIDTH 13.5 % (11.5-14.5); WHITE BLOOD COUNT 9.2 x10^3/uL (4.0-11.0)
--- NOTE | 2021-01-25 09:37 | RAD ---
CT STROKE HEAD W/O History: Reason: slurred speech, right side facial droop / Spl. Instructions: / History: Comparison: None. Technique: Noncontrast CT imaging was performed of the head. Exposure: One or more of the following individualized dose reduction techniques were utilized for thi s examination: 1. Automated exposure control 2. Adjustment of the mA and/or kV according to patient size 3. Use of iterative reconstruction technique. Findings: No intracranial hemorrhage. No mass effect. No hydrocephalus. Ill-defined loss of lintno-white eventration within the right anterior frontal lobe Mild additional foci of decreased attenuation within the hemispheric white matter, most often due to chronic microvascular ischemia. Imaged orbits are unremarkable. Imaged paranasal sinuses and mastoid air cells are clear. No acute ca lvarial fracture. Impression: 1. No acute intracranial hemorrhage. 2. Ill-defined loss of linton-white differentiation within the right anterior frontal lobe potentially artifactual. Recommend MRI to further evaluate for ischemic changes. FOR INTERNAL CODING PURPOSES Critical result: Findings discussed with Dr. Pena at 01/25/2021 9:28 AM. RESULT CODE: (C) Electronically signed by: Andrew Galan DO (01/25/2021 9:34 AM) [facility] [place]
[2021-01-25 09:39] LABS: CALCIUM 9.4 mg/dL (8.5-10.1); CREATININE 1.2 mg/dL (0.6-1.0); GFR 43.7
[2021-01-25 09:45] LABS: ALBUMIN 3.7 g/dL (3.4-5.0); ALBUMIN/GLOBULIN RATIO 0.9 (1.0-1.7); TOTAL PROTEIN 7.9 g/dL (6.4-8.2)
[2021-01-25 09:50] LABS: BILIRUBIN,URINE NEGATIVE (NEG); CLARITY,URINE CLEAR; COLOR,URINE YELLOW; NITRITE,URINE NEGATIVE (NEG); PROTEIN,URINE NEGATIVE (NEG-TRACE); UROBILINOGEN,URINE 0.2 mg/dL (0.2 mg/dL)
[2021-01-25 10:09] LABS: BACTERIA,URINE 0 /HPF (0-FEW); WBC,URINE OCC /HPF (0-4)
[2021-01-25 10:23] LABS: PROTHROMBIN TIME PATIENT 14.5 SEC (11.7-14.0)
[2021-01-25] MEDS ORDERED: IOHEXOL 300 MG/ML 100ML VIAL. IV ONE (10:30)
[2021-01-25] MEDS ORDERED: CONTRAST GIVEN. MC PRN (10:45)
--- NOTE | 2021-01-25 11:49 | RAD ---
CTA HEAD AND NECK W/WO CONTRAST History:Reason: RIGHT SIDE FACIAL DROOP, R SIDE WEAKNESS, SLURRED SP / Spl. Instructions: omni 300 60 ml / History: Technique: After bolus of intravenous contrast, volumetric CT data acquisition was acquired of the he ad and neck. Multiplanar reconstruction images to include MIP and 3-D reconstruction images are submi tted. Exposure: One or more of the following individualized dose reduction techniques were utilized for thi s examination: 1. Automated exposure control 2. Adjustment of the mA and/or kV according to patient size 3. Use of iterative reconstruction technique. Comparison: Noncontrast head CT January 25, 2021. Any determination of stenosis is based on NASCET criteria. Head CTA: ICA: No stenosis, occlusion or aneurysm. Atheromatous plaque within the carotid siphons. MCA: No stenosis, occlusion or aneurysm. GENI: No stenosis, occlusion or aneurysm. ACCOUNT SPECIALIST: No stenosis, occlusion or aneurysm. Basilar artery: No stenosis, occlusion or aneurysm. Distal vertebral arteries: No stenosis, occlusion or aneurysm. Previous seen linton-white indistinctness differentiation right frontal lobe is not well characterized on current examination. CT angiogram neck: Aortic arch: Mild atheromatous plaque within the aortic arch. Common carotid arteries: No stenosis, occlusion or dissection. Internal carotid arteries: No stenosis, occlusion or dissection. Minimal atheromatous plaque within t he right carotid bifurcation. Tortuous internal carotid arteries. External carotid arteries: Patent Vertebral arteries: No stenosis, occlusion or dissection. Imaged lung apices are unremarkable. Soft tissues appear normal. Bones: Large maxillary concepcion. Moderate multilevel cervical sclerosis most prominent C5-C6 and C6-C7. F acet arthropathy. Mild canal narrowing C5-C6. No high-grade canal narrowing. Multilevel neuroforamina l narrowing. Impression: 1. No arterial stenosis or occlusion within the head or neck. 2. Indistinct right frontal linton-white differentiation is not well characterized on current examinat ion and may relate to artifact seen previously. MRI can definitively evaluate. FOR INTERNAL CODING PURPOSES Critical result: Findings discussed with Dr. Pena at 01/25/2021 11:45 AM. RESULT CODE: (C) Electronically signed by: Andrew Galan DO (01/25/2021 11:47 AM) [facility] [place]
[2021-01-25] MEDS ORDERED: ONDANSETRON PF 4 MG/2 ML VIAL. IVP PRN ×2 (12:15→12:45)
[2021-01-25] MEDS ORDERED: ACETAMINOPHEN 325 MG TABLET. PO PRN ×2 (12:30→12:45)
[2021-01-25] MEDS ORDERED: CALCIUM CARBONATE 500 MG TAB.CHEW PO PRN (12:45)
[2021-01-25] MEDS ORDERED: oxyCODONE IR 5 MG TABLET PO PRN (12:45)
[2021-01-25] MEDS ORDERED: oxyCODONE/APAP 5/325 1 TAB TABLET PO PRN ×2 (12:45)
[2021-01-25] MEDS ORDERED: ANTI-COAG MONITOR BY PHARMACY. MC PRN (12:45)
[2021-01-25] MEDS ORDERED: ZOLPIDEM 5 MG TABLET. PO PRN (12:45)
[2021-01-25] MEDS ORDERED: ELECTROLYTE (NON-ICU) PROTOCOL. MC PRN (12:45)
[2021-01-25] MEDS ORDERED: ASPI81TA59 PO (14:52)
[2021-01-25] MEDS ORDERED: APIX5TAB PO (14:52)
[2021-01-25] MEDS ORDERED: FURO-69 PO (14:52)
[2021-01-25] MEDS ORDERED: AMLO-187 PO (14:52)
[2021-01-25] MEDS: METOPROLOL TART IMMED RELEASE 50 MG TABLET. PO SCH ×2 (14:53→19:57)
[2021-01-25] MEDS: APIXABAN 5 MG TABLET. PO SCH ×2 (14:53→19:57)
--- NOTE | 2021-01-25 14:55 | RAD ---
EXAM: Brain MRI without contrast. HISTORY: Right hemiparesis. Stroke. TECHNIQUE: Multiplanar, multisequence magnetic resonance imaging of the brain was performed without c ontrast. COMPARISON: CT dated 01/25/2021. FINDINGS: There is no restricted diffusion to suggest acute or subacute infarction. There is no susce ptibility effect to suggest hemorrhage. There is no mass effect or midline shift. There is no hydroce phalus. There are multiple scattered focal areas of signal change throughout the cerebral white matter, likel y due to chronic small vessel disease. The orbits are unremarkable. There is a small left maxillary s inus mucous retention cyst. There is minimal mastoid fluid. There are normal flow voids within the cerebral vessels. There is no suspicious calvarial lesion. The re is a prominent sella. There is a suspected partially empty sella. There is incidental torus palati ni. IMPRESSION: 1. No acute intracranial finding. 2. Scattered areas of signal change throughout the cerebral white matter, likely due to chronic small vessel disease. Electronically signed by: Linda Wilson MD (01/25/2021 2:53 PM) [id number]
[2021-01-25 15:00] VITALS: BP 111/78
--- NOTE | 2021-01-25 15:24 | PDOC2 ---
NEUROLOGY CONSULT Date of Service DOS: DATE: 01/25/21 TIME: 15:10 Seen at 12:20 in ED Reason for Consult Reason for Consult: Stroke symptoms Referring Physician Referring Physician: Dr. Patel Source Source: Caregiver (daughter), Chart review, Patient History of Present Illness History of Present Illness The patient is a 75-year-old right handed female who went to bed normal at 23:00 last night, woke up at 05:30 this morning with right facial weakness and right arm weakness. Patient came to the emergency room late this morning. Symptoms resolved in the emergency department. There was no headache, diplopia, or dysphasia. There's no prior history of stroke, seizure, or head injury. Past Medical History Cardiovascular: AFIB, HTN, Hyperlipidemia, Other (heart murmur) Pulmonary: Pneumonia GI: Constipation, GERD Infectious disease: Other (COVID 19) Renal/: UTI Past Surgical History Past Surgical History: , Hysterectomy, Other (right ankle fracture) Family History Family History: CAD Social History Social History , no tobacco or alcohol Current Medications Current Medications Current Medications Iohexol (Omnipaque 300 Mg/ml) 60 ml 1X ONCE IV Last administered on 01/25/21at 10:47; Start 01/25/21 at 10:30; Stop 01/25/21 at 10:31; Status DC Info (CONTRAST GIVEN -- Rx MONITORING) 1 each PRN DAILY PRN MC SEE COMMENTS; Start 01/25/21 at 10:45; Stop 01/27/21 at 10:44 Ondansetron HCl (Zofran) 4 mg PRN Q8HRS PRN IVP NAUSEA/VOMITING; Start 01/25/21 at 12:15; Stop 01/26/21 at 12:14 Acetaminophen (Tylenol) 650 mg PRN Q6HRS PRN PO MILD PAIN / TEMP > 100.3'F; Start 01/25/21 at 12:30 Ondansetron HCl (Zofran) 4 mg PRN Q6HRS PRN IVP NAUSEA/VOMITING; Start 01/25/21 at 12:45 Calcium Carbonate/ Glycine (Tums) 500 mg PRN Q3HRS PRN PO UPSET STOMACH; Start 01/25/21 at 12:45 Zolpidem Tartrate (Ambien) 5 mg PRN QHS PRN PO INSOMNIA, MAY REPEAT IN 1HR; Start 01/25/21 at 12:45 Info (Non-Icu Electrolyte Protocol) 1 ea PRN DAILY PRN MC SEE COMMENTS; Start 01/25/21 at 12:45 Oxycodone HCl (Roxicodone) 5 mg PRN Q3HRS PRN PO BREAKTHROUGH PAIN; Start 01/25/21 at 12:45 Oxycodone/ Acetaminophen (Percocet 5/325) 1 tab PRN Q4HRS PRN PO MILD PAIN, 1ST CHOICE; Start 01/25/21 at 12:45 Oxycodone/ Acetaminophen (Percocet 5/325) 2 tab PRN Q4HRS PRN PO MODERATE PAIN, SEVERE PAIN; Start 01/25/21 at 12:45 Acetaminophen (Tylenol) 650 mg PRN Q6HRS PRN PO Headaches, Temp > 101.5F; Start 01/25/21 at 12:45 Senna/Docusate Sodium (Senna Plus) 1 tab BID PO ; Start 01/25/21 at 21:00 Metoprolol Tartrate (Lopressor) 50 mg BID PO Last administered on 01/25/21at 14:53; Start 01/25/21 at 13:00 Aspirin (Ecotrin) 81 mg DAILYWBKFT PO ; Start 01/26/21 at 08:00 Apixaban (Eliquis) 5 mg BID PO Last administered on 01/25/21at 14:53; Start 01/25/21 at 13:00 Info (Anti-Coagulation Monitoring By Pharmacy) 1 each PRN DAILY PRN MC PER PROTOCOL; Start 01/25/21 at 12:45 Active Scripts Active Reported Eliquis (Apixaban) 5 Mg Tablet 5 Mg PO DAILY Amlodipine Besylate 10 Mg Tablet 10 Mg PO DAILY Lasix (Furosemide) 20 Mg Tablet 20 Mg PO PRN DAILY PRN Children's Aspirin (Aspirin) 81 Mg Tab.chew 81 Mg PO HS Metoprolol Tartrate 50 Mg Tablet 1 Tab PO BID Allergies Allergies: Coded Allergies: NAFISA Inhibitors (Verified Allergy, Intermediate, 01/25/21) lisinopril (Verified Allergy, Intermediate, 06/29/20) ROS Review of System Negative for fever, chills, weight loss, shortness of breath, chest pain, indigestion, hematochezia, melena, and dysuria. Full 14-point review of systems is negative. Physical Exam Physical Examination General: Well-developed, well-nourished white female in no acute distress HEENT: Normocephalic andatraumatic.Temporal arteriespulsatile and nontender. Neck: Supple without bruit, no meningismus Musculoskeletal: Stability:see neurologic. Gait exam:see neurologic. Tone:see neurologic.Strength:see neurologic. Neurological: Mental Status:intact, orientation, memory, attention span/concentration, language, fund of knowledge normal. Cranial Nerves:Pupils equal and reactive to light, extraocular movements areintact, visual goldstein are full to confrontation. Facial sensation is normal. There is no facial asymmetry. Vestibulo-ocular reflex is intact. Palate elevates and tongue protrudes in midline. All other cranial related problems are negative except as mentioned before.Reflexes:2+ and symmetric with flexor plantar responses. Motor:5/5 strength with normal tone and bulk. Coordination:Finger-nose finger and [id number] testing are normal. Rapid alternating movements and fine finger movements are intact. Gait:Not tested. Sensory:Normal pinprick, vibration, light touch, proprioception. Vitals VITALS Vital Signs Date Time Temp Pulse Resp B/P (MAP) Pulse Ox O2 Delivery O2 Flow Rate FiO2 01/25/21 14:53 76 132/92 01/25/21 14:28 Room Air 01/25/21 12:00 18 98 01/25/21 09:15 98.1 98.1 Labs Labs Laboratory Tests Test 01/25/21 09:04 01/25/21 09:25 01/25/21 09:55 01/25/21 12:41 White Blood Count 9.2 x10^3/uL (4.0-11.0) Red Blood Count 4.88 x10^6/uL (3.50-5.40) Hemoglobin 14.9 g/dL (12.0-15.5) Hematocrit 44.6 % (36.0-47.0) Mean Corpuscular Volume 91 fL (79-100) Mean Corpuscular Hemoglobin 31 pg (25-35) Mean Corpuscular Hemoglobin Concent 33 g/dL (31-37) Red Cell Distribution Width 13.5 % (11.5-14.5) Platelet Count 296 x10^3/uL (140-400) Neutrophils (%) (Auto) 59 % (31-73) Lymphocytes (%) (Auto) 22 % (24-48) Monocytes (%) (Auto) 11 % (0-9) Eosinophils (%) (Auto) 8 % (0-3) Basophils (%) (Auto) 1 % (0-3) Neutrophils # (Auto) 5.4 x10^3/uL (1.8-7.7) Lymphocytes # (Auto) 2.0 x10^3/uL (1.0-4.8) Monocytes # (Auto) 1.0 x10^3/uL (0.0-1.1) Eosinophils # (Auto) 0.7 x10^3/uL (0.0-0.7) Basophils # (Auto) 0.1 x10^3/uL (0.0-0.2) Sodium Level 141 mmol/L (136-145) Potassium Level 4.0 mmol/L (3.5-5.1) Chloride Level 104 mmol/L (98-107) Carbon Dioxide Level 25 mmol/L (21-32) Anion Gap 12 (6-14) Blood Urea Nitrogen 22 mg/dL (7-20) Creatinine 1.2 mg/dL (0.6-1.0) Estimated GFR (Cockcroft-Gault) 43.7 BUN/Creatinine Ratio 18 (6-20) Glucose Level 108 mg/dL (70-99) Calcium Level 9.4 mg/dL (8.5-10.1) Magnesium Level 2.2 mg/dL (1.8-2.4) Total Bilirubin 1.0 mg/dL (0.2-1.0) Aspartate Amino Transf (AST/SGOT) 23 U/L (15-37) Alanine Aminotransferase (ALT/SGPT) 28 U/L (14-59) Alkaline Phosphatase 92 U/L (46-116) Troponin I Quantitative < 0.017 ng/mL (0.000-0.055) QN-Uhe-I-Type Natriuretic Peptide 899 pg/mL (0-449) Total Protein 7.9 g/dL (6.4-8.2) Albumin 3.7 g/dL (3.4-5.0) Albumin/Globulin Ratio 0.9 (1.0-1.7) Urine Collection Type Unknown Urine Color Yellow Urine Clarity Clear Urine pH 6.0 (<5.0-8.0) Urine Specific Mary[place] <=1.005 (1.000-1.030) Urine Protein Negative mg/dL (NEG-TRACE) Urine Glucose (UA) Negative mg/dL (NEG) Urine Ketones (Stick) Negative mg/dL (NEG) Urine Blood Trace (NEG) Urine Nitrite Negative (NEG) Urine Bilirubin Negative (NEG) Urine Urobilinogen Dipstick 0.2 mg/dL (0.2 mg/dL) Urine Leukocyte Esterase Negative (NEG) Urine RBC 1-2 /HPF (0-2) Urine WBC Occ /HPF (0-4) Urine Squamous Epithelial Cells Few /LPF Urine Renal Epithelial Cells Occ /LPF Urine Bacteria 0 /HPF (0-FEW) Prothrombin Time 14.5 SEC (11.7-14.0) Prothromb Time International Ratio 1.1 (0.8-1.1) Activated Partial Thromboplast Time 34 SEC (24-38) SARS-CoV-2 Antigen (Rapid) Negative (NEGATIVE) Laboratory Tests Test 01/25/21 09:04 01/25/21 09:25 01/25/21 09:55 01/25/21 12:41 White Blood Count 9.2 x10^3/uL (4.0-11.0) Red Blood Count 4.88 x10^6/uL (3.50-5.40) Hemoglobin 14.9 g/dL (12.0-15.5) Hematocrit 44.6 % (36.0-47.0) Mean Corpuscular Volume 91 fL (79-100) Mean Corpuscular Hemoglobin 31 pg (25-35) Mean Corpuscular Hemoglobin Concent 33 g/dL (31-37) Red Cell Distribution Width 13.5 % (11.5-14.5) Platelet Count 296 x10^3/uL (140-400) Neutrophils (%) (Auto) 59 % (31-73) Lymphocytes (%) (Auto) 22 % (24-48) Monocytes (%) (Auto) 11 % (0-9) Eosinophils (%) (Auto) 8 % (0-3) Basophils (%) (Auto) 1 % (0-3) Neutrophils # (Auto) 5.4 x10^3/uL (1.8-7.7) Lymphocytes # (Auto) 2.0 x10^3/uL (1.0-4.8) Monocytes # (Auto) 1.0 x10^3/uL (0.0-1.1) Eosinophils # (Auto) 0.7 x10^3/uL (0.0-0.7) Basophils # (Auto) 0.1 x10^3/uL (0.0-0.2) Sodium Level 141 mmol/L (136-145) Potassium Level 4.0 mmol/L (3.5-5.1) Chloride Level 104 mmol/L (98-107) Carbon Dioxide Level 25 mmol/L (21-32) Anion Gap 12 (6-14) Blood Urea Nitrogen 22 mg/dL (7-20) Creatinine 1.2 mg/dL (0.6-1.0) Estimated GFR (Cockcroft-Gault) 43.7 BUN/Creatinine Ratio 18 (6-20) Glucose Level 108 mg/dL (70-99) Calcium Level 9.4 mg/dL (8.5-10.1) Magnesium Level 2.2 mg/dL (1.8-2.4) Total Bilirubin 1.0 mg/dL (0.2-1.0) Aspartate Amino Transf (AST/SGOT) 23 U/L (15-37) Alanine Aminotransferase (ALT/SGPT) 28 U/L (14-59) Alkaline Phosphatase 92 U/L (46-116) Troponin I Quantitative < 0.017 ng/mL (0.000-0.055) ZX-Hkd-H-Type Natriuretic Peptide 899 pg/mL (0-449) Total Protein 7.9 g/dL (6.4-8.2) Albumin 3.7 g/dL (3.4-5.0) Albumin/Globulin Ratio 0.9 (1.0-1.7) Urine Collection Type Unknown Urine Color Yellow Urine Clarity Clear Urine pH 6.0 (<5.0-8.0) Urine Specific Marydel <=1.005 (1.000-1.030) Urine Protein Negative mg/dL (NEG-TRACE) Urine Glucose (UA) Negative mg/dL (NEG) Urine Ketones (Stick) Negative mg/dL (NEG) Urine Blood Trace (NEG) Urine Nitrite Negative (NEG) Urine Bilirubin Negative (NEG) Urine Urobilinogen Dipstick 0.2 mg/dL (0.2 mg/dL) Urine Leukocyte Esterase Negative (NEG) Urine RBC 1-2 /HPF (0-2) Urine WBC Occ /HPF (0-4) Urine Squamous Epithelial Cells Few /LPF Urine Renal Epithelial Cells Occ /LPF Urine Bacteria 0 /HPF (0-FEW) Prothrombin Time 14.5 SEC (11.7-14.0) Prothromb Time International Ratio 1.1 (0.8-1.1) Activated Partial Thromboplast Time 34 SEC (24-38) SARS-CoV-2 Antigen (Rapid) Negative (NEGATIVE) Images Images CT STROKE HEAD W/O History: Reason: slurred speech, right side facial droop / Spl. Instructions: / History: Comparison: None. Technique: Noncontrast CT imaging was performed of the head. Exposure: One or more of the following individualized dose reduction techniques were utilized for this examination: 1. Automated exposure control 2. Adjustment of the mA and/or kV according to patient size 3. Use of iterative reconstruction technique. Findings: No intracranial hemorrhage. No mass effect. No hydrocephalus. Ill-defined loss of linton-white eventration within the right anterior frontal lobe Mild additional foci of decreased attenuation within the hemispheric white matter, most often due to chronic microvascular ischemia. Imaged orbits are unremarkable. Imaged paranasal sinuses and mastoid air cells are clear. No acute calvarial fracture. Impression: 1. No acute intracranial hemorrhage. 2. Ill-defined loss of linton-white differentiation within the right anterior frontal lobe potentially artifactual. Recommend MRI to further evaluate for ischemic changes CTA HEAD AND NECK W/WO CONTRAST History:Reason: RIGHT SIDE FACIAL DROOP, R SIDE WEAKNESS, SLURRED SP / Spl. Instructions: omni 300 60ml / History: Technique: After bolus of intravenous contrast, volumetric CT data acquisition was acquired of the head and neck. Multiplanar reconstruction images to include MIP and 3-D reconstruction images are submitted. Exposure: One or more of the following individualized dose reduction techniques were utilized for this examination: 1. Automated exposure control 2. Adjustment of the mA and/or kV according to patient size 3. Use of iterative reconstruction technique. Comparison: Noncontrast head CT January 25, 2021. Any determination of stenosis is based on NASCET criteria. Head CTA: ICA: No stenosis, occlusion or aneurysm. Atheromatous plaque within the carotid siphons. MCA: No stenosis, occlusion or aneurysm. GENI: No stenosis, occlusion or aneurysm. [place]: No stenosis, occlusion or aneurysm. Basilar artery: No stenosis, occlusion or aneurysm. Distal vertebral arteries: No stenosis, occlusion or aneurysm. Previous seen linton-white indistinctness differentiation right frontal lobe is not well characterized on current examination. CT angiogram neck: Aortic arch: Mild atheromatous plaque within the aortic arch. Common carotid arteries: No stenosis, occlusion or dissection. Internal carotid arteries: No stenosis, occlusion or dissection. Minimal atheromatous plaque within the right carotid bifurcation. Tortuous internal carotid arteries. External carotid arteries: Patent Vertebral arteries: No stenosis, occlusion or dissection. Imaged lung apices are unremarkable. Soft tissues appear normal. Bones: Large maxillary concepcion. Moderate multilevel cervical sclerosis most prominent C5-C6 and C6-C7. Facet arthropathy. Mild canal narrowing C5-C6. No high-grade canal narrowing. Multilevel neuroforaminal narrowing. Impression: 1. No arterial stenosis or occlusion within the head or neck. 2. Indistinct right frontal linton-white differentiation is not well characterized on current examination and may relate to artifact seen previously. MRI can definitively evaluate. Brain MRI without contrast. HISTORY: Right hemiparesis. Stroke. TECHNIQUE: Multiplanar, multisequence magnetic resonance imaging of the brain was performed without contrast. COMPARISON: CT dated 01/25/2021. FINDINGS: There is no restricted diffusion to suggest acute or subacute infarction. There is no susceptibility effect to suggest hemorrhage. There is no mass effect or midline shift. There is no hydrocephalus. There are multiple scattered focal areas of signal change throughout the cerebral white matter, likely due to chronic small vessel disease. The orbits are unremarkable. There is a small left maxillary sinus mucous retention cyst. There is minimal mastoid fluid. There are normal flow voids within the cerebral vessels. There is no suspicious calvarial lesion. There is a prominent sella. There is a suspected partially empty sella. There is incidental torus palatini. IMPRESSION: 1. No acute intracranial finding. 2. Scattered areas of signal change throughout the cerebral white matter, likely due to chronic small vessel disease. Assessment/Plan Assessment/Plan Impression: Transient ischemic attack, patient with atrial fibrillation on apixaban. Workup negative. Recommendation: Continue apixaban, this is the maximum dose, doubt switching to a different NOAC would help, but see what echo shows Disagree with adding on aspirin, no sign this was a small vessel stroke Not an alteplace candidate. MRI brain, done Echocardiogram, Rehab screening Aim to discharge tomorrow. Discussed with Dr. Pena, patient, and daughter Thank you for letting me help with the patient's care. BRYCE HARPER MD Jan 25, 2021 15:24
[2021-01-25] MEDS ORDERED: FUROSEMIDE 20 MG TABLET PO PRN (15:45)
--- NOTE | 2021-01-25 17:20 | PDOC1 ---
History and Physical Date of Service: DOS: DATE: 01/25/21 TIME: 17:12 Chief Complaint: Problems: (1) TIA (transient ischemic attack) History of Present Illness: Reason for Visit: Right-sided weakness HPI: This patient is a 75-year-old white female who presents to the emergency room this morning due to right-sided weakness upon waking. Patient reports she went to bed at around 11 PM last night and awoke this morning at 530 to use the restroom and felt very weak throughout her entire right side. Try to go walk to the restroom however she try to ambulate since was having significant difficulty. She has history of atrial fibrillation on home Eliquis and hypertension. Presented to the emergency room here and there is concern for ischemic stroke so code stroke was called. Patient did have deficits on exam per report. She was out of the window for TPA. Neurology evaluated in the emergency room. CT head showed no acute hemorrhage. Recommend brain MRI for further ischemic work-up. This was performed and ruled out ischemic work-up. Patient's symptoms improved quite notably in the emergency room. Past Medical/Surgical History: PMH/PSH: Melvi fib on home Eliquis, hypertension Allergies: Allergies: Coded Allergies: NAFISA Inhibitors (Verified Allergy, Intermediate, 01/25/21) lisinopril (Verified Allergy, Intermediate, 06/29/20) Family History: Family History: Reviewed with patient. She reports a family history of hypertension Social History: Social History: She denies alcohol tobacco drug use Current Medications: Current Medications Current Medications Iohexol (Omnipaque 300 Mg/ml) 60 ml 1X ONCE IV Last administered on 01/25/21at 10:47; Start 01/25/21 at 10:30; Stop 01/25/21 at 10:31; Status DC Info (CONTRAST GIVEN -- Rx MONITORING) 1 each PRN DAILY PRN MC SEE COMMENTS; Start 01/25/21 at 10:45; Stop 01/27/21 at 10:44 Ondansetron HCl (Zofran) 4 mg PRN Q8HRS PRN IVP NAUSEA/VOMITING; Start 01/25/21 at 12:15; Stop 01/26/21 at 12:14 Acetaminophen (Tylenol) 650 mg PRN Q6HRS PRN PO MILD PAIN / TEMP > 100.3'F; Start 01/25/21 at 12:30 Ondansetron HCl (Zofran) 4 mg PRN Q6HRS PRN IVP NAUSEA/VOMITING; Start 01/25/21 at 12:45 Calcium Carbonate/ Glycine (Tums) 500 mg PRN Q3HRS PRN PO UPSET STOMACH; Start 01/25/21 at 12:45 Zolpidem Tartrate (Ambien) 5 mg PRN QHS PRN PO INSOMNIA, MAY REPEAT IN 1HR; Start 01/25/21 at 12:45 Info (Non-Icu Electrolyte Protocol) 1 ea PRN DAILY PRN MC SEE COMMENTS; Start 01/25/21 at 12:45 Oxycodone HCl (Roxicodone) 5 mg PRN Q3HRS PRN PO BREAKTHROUGH PAIN; Start 01/25/21 at 12:45 Oxycodone/ Acetaminophen (Percocet 5/325) 1 tab PRN Q4HRS PRN PO MILD PAIN, 1ST CHOICE; Start 01/25/21 at 12:45 Oxycodone/ Acetaminophen (Percocet 5/325) 2 tab PRN Q4HRS PRN PO MODERATE PAIN, SEVERE PAIN; Start 01/25/21 at 12:45 Acetaminophen (Tylenol) 650 mg PRN Q6HRS PRN PO Headaches, Temp > 101.5F; Start 01/25/21 at 12:45 Senna/Docusate Sodium (Senna Plus) 1 tab BID PO ; Start 01/25/21 at 21:00 Metoprolol Tartrate (Lopressor) 50 mg BID PO Last administered on 01/25/21at 14:53; Start 01/25/21 at 13:00 Aspirin (Ecotrin) 81 mg DAILYWBKFT PO ; Start 01/26/21 at 08:00; Stop 01/25/21 at 15:20; Status DC Apixaban (Eliquis) 5 mg BID PO Last administered on 01/25/21at 14:53; Start 01/25/21 at 13:00 Info (Anti-Coagulation Monitoring By Pharmacy) 1 each PRN DAILY PRN MC PER PROTOCOL; Start 01/25/21 at 12:45 Amlodipine Besylate (Norvasc) 10 mg DAILY PO ; Start 01/26/21 at 09:00 Furosemide (Lasix) 20 mg PRN DAILY PRN PO Edema; Start 01/25/21 at 15:45 Aspirin (Aspirin Chewable) 81 mg HS PO ; Start 01/25/21 at 21:00 Active Scripts Active Reported Eliquis (Apixaban) 5 Mg Tablet 5 Mg PO DAILY Amlodipine Besylate 10 Mg Tablet 10 Mg PO DAILY Lasix (Furosemide) 20 Mg Tablet 20 Mg PO PRN DAILY PRN Children's Aspirin (Aspirin) 81 Mg Tab.chew 81 Mg PO HS Metoprolol Tartrate 50 Mg Tablet 1 Tab PO BID ROS: Review of Systems Review of System Other than positives in HPI a 14 point review of systems was negative Physical Exam: Vital Signs: Vital Signs Date Time Temp Pulse Resp B/P (MAP) Pulse Ox O2 Delivery O2 Flow Rate FiO2 01/25/21 15:00 98.6 68 17 111/78 (89) 99 Room Air 98.6 Physcial Exam: GEN: No apparent distress. Alert and oriented HEENT: Normal cephalic, atraumatic, external auditory canals are patent EYES: Extraocular muscles are intact, pupil are equally round and reactive to light and accommodation MUSCULOSKELETAL: Well developed , well nourished, good range of motion ENDOCRINE: No thyromegaly was palpated LYMPHATICS: No cervical chain or axillary nodes were noted HEMATOPOIETIC: No bruising NECK: Supple, no JVD, no thyromegaly was noted LUNGS: Clear to auscultation in all lung goldstein without rhonchi or wheezing HEART: RRR, S1, S2 present. Peripheral pulses intact, no obvious murmurs noted ABDOMEN: Soft, nontender. Positive bowel sounds, no organomegaly, normal bowel sounds EXTREMITIES: Without clubbing, cyanosis, or edema. Pedal pulses intact. NEUROLOGIC: Normal speech and tone. A&O x 3, may be some right ankle weakness otherwise strength well preserved throughout PSYCHIATRIC: Normal affect, normal mood. Stable SKIN: No ulcerations or rashes, good skin turgor, no jaundice VASCULAR: Good capillary refill, neurovascular bundle appears to be intact Labs: Labs: Laboratory Tests Test 01/25/21 09:04 01/25/21 09:25 01/25/21 09:55 01/25/21 12:41 White Blood Count 9.2 x10^3/uL (4.0-11.0) Red Blood Count 4.88 x10^6/uL (3.50-5.40) Hemoglobin 14.9 g/dL (12.0-15.5) Hematocrit 44.6 % (36.0-47.0) Mean Corpuscular Volume 91 fL (79-100) Mean Corpuscular Hemoglobin 31 pg (25-35) Mean Corpuscular Hemoglobin Concent 33 g/dL (31-37) Red Cell Distribution Width 13.5 % (11.5-14.5) Platelet Count 296 x10^3/uL (140-400) Neutrophils (%) (Auto) 59 % (31-73) Lymphocytes (%) (Auto) 22 % (24-48) Monocytes (%) (Auto) 11 % (0-9) Eosinophils (%) (Auto) 8 % (0-3) Basophils (%) (Auto) 1 % (0-3) Neutrophils # (Auto) 5.4 x10^3/uL (1.8-7.7) Lymphocytes # (Auto) 2.0 x10^3/uL (1.0-4.8) Monocytes # (Auto) 1.0 x10^3/uL (0.0-1.1) Eosinophils # (Auto) 0.7 x10^3/uL (0.0-0.7) Basophils # (Auto) 0.1 x10^3/uL (0.0-0.2) Sodium Level 141 mmol/L (136-145) Potassium Level 4.0 mmol/L (3.5-5.1) Chloride Level 104 mmol/L (98-107) Carbon Dioxide Level 25 mmol/L (21-32) Anion Gap 12 (6-14) Blood Urea Nitrogen 22 mg/dL (7-20) Creatinine 1.2 mg/dL (0.6-1.0) Estimated GFR (Cockcroft-Gault) 43.7 BUN/Creatinine Ratio 18 (6-20) Glucose Level 108 mg/dL (70-99) Calcium Level 9.4 mg/dL (8.5-10.1) Magnesium Level 2.2 mg/dL (1.8-2.4) Total Bilirubin 1.0 mg/dL (0.2-1.0) Aspartate Amino Transf (AST/SGOT) 23 U/L (15-37) Alanine Aminotransferase (ALT/SGPT) 28 U/L (14-59) Alkaline Phosphatase 92 U/L (46-116) Troponin I Quantitative < 0.017 ng/mL (0.000-0.055) GZ-[id number]-Type Natriuretic Peptide 899 pg/mL (0-449) Total Protein 7.9 g/dL (6.4-8.2) Albumin 3.7 g/dL (3.4-5.0) Albumin/Globulin Ratio 0.9 (1.0-1.7) Urine Collection Type Unknown Urine Color Yellow Urine Clarity Clear Urine pH 6.0 (<5.0-8.0) Urine Specific [place] <=1.005 (1.000-1.030) Urine Protein Negative mg/dL (NEG-TRACE) Urine Glucose (UA) Negative mg/dL (NEG) Urine Ketones (Stick) Negative mg/dL (NEG) Urine Blood Trace (NEG) Urine Nitrite Negative (NEG) Urine Bilirubin Negative (NEG) Urine Urobilinogen Dipstick 0.2 mg/dL (0.2 mg/dL) Urine Leukocyte Esterase Negative (NEG) Urine RBC 1-2 /HPF (0-2) Urine WBC Occ /HPF (0-4) Urine Squamous Epithelial Cells Few /LPF Urine Renal Epithelial Cells Occ /LPF Urine Bacteria 0 /HPF (0-FEW) Prothrombin Time 14.5 SEC (11.7-14.0) Prothromb Time International Ratio 1.1 (0.8-1.1) Activated Partial Thromboplast Time 34 SEC (24-38) SARS-CoV-2 Antigen (Rapid) Negative (NEGATIVE) Laboratory Tests Test 01/25/21 09:04 01/25/21 09:25 01/25/21 09:55 01/25/21 12:41 White Blood Count 9.2 x10^3/uL (4.0-11.0) Red Blood Count 4.88 x10^6/uL (3.50-5.40) Hemoglobin 14.9 g/dL (12.0-15.5) Hematocrit 44.6 % (36.0-47.0) Mean Corpuscular Volume 91 fL (79-100) Mean Corpuscular Hemoglobin 31 pg (25-35) Mean Corpuscular Hemoglobin Concent 33 g/dL (31-37) Red Cell Distribution Width 13.5 % (11.5-14.5) Platelet Count 296 x10^3/uL (140-400) Neutrophils (%) (Auto) 59 % (31-73) Lymphocytes (%) (Auto) 22 % (24-48) Monocytes (%) (Auto) 11 % (0-9) Eosinophils (%) (Auto) 8 % (0-3) Basophils (%) (Auto) 1 % (0-3) Neutrophils # (Auto) 5.4 x10^3/uL (1.8-7.7) Lymphocytes # (Auto) 2.0 x10^3/uL (1.0-4.8) Monocytes # (Auto) 1.0 x10^3/uL (0.0-1.1) Eosinophils # (Auto) 0.7 x10^3/uL (0.0-0.7) Basophils # (Auto) 0.1 x10^3/uL (0.0-0.2) Sodium Level 141 mmol/L (136-145) Potassium Level 4.0 mmol/L (3.5-5.1) Chloride Level 104 mmol/L (98-107) Carbon Dioxide Level 25 mmol/L (21-32) Anion Gap 12 (6-14) Blood Urea Nitrogen 22 mg/dL (7-20) Creatinine 1.2 mg/dL (0.6-1.0) Estimated GFR (Cockcroft-Gault) 43.7 BUN/Creatinine Ratio 18 (6-20) Glucose Level 108 mg/dL (70-99) Calcium Level 9.4 mg/dL (8.5-10.1) Magnesium Level 2.2 mg/dL (1.8-2.4) Total Bilirubin 1.0 mg/dL (0.2-1.0) Aspartate Amino Transf (AST/SGOT) 23 U/L (15-37) Alanine Aminotransferase (ALT/SGPT) 28 U/L (14-59) Alkaline Phosphatase 92 U/L (46-116) Troponin I Quantitative < 0.017 ng/mL (0.000-0.055) JY-Mze-J-Type Natriuretic Peptide 899 pg/mL (0-449) Total Protein 7.9 g/dL (6.4-8.2) Albumin 3.7 g/dL (3.4-5.0) Albumin/Globulin Ratio 0.9 (1.0-1.7) Urine Collection Type Unknown Urine Color Yellow Urine Clarity Clear Urine pH 6.0 (<5.0-8.0) Urine Specific [place] <=1.005 (1.000-1.030) Urine Protein Negative mg/dL (NEG-TRACE) Urine Glucose (UA) Negative mg/dL (NEG) Urine Ketones (Stick) Negative mg/dL (NEG) Urine Blood Trace (NEG) Urine Nitrite Negative (NEG) Urine Bilirubin Negative (NEG) Urine Urobilinogen Dipstick 0.2 mg/dL (0.2 mg/dL) Urine Leukocyte Esterase Negative (NEG) Urine RBC 1-2 /HPF (0-2) Urine WBC Occ /HPF (0-4) Urine Squamous Epithelial Cells Few /LPF Urine Renal Epithelial Cells Occ /LPF Urine Bacteria 0 /HPF (0-FEW) Prothrombin Time 14.5 SEC (11.7-14.0) Prothromb Time International Ratio 1.1 (0.8-1.1) Activated Partial Thromboplast Time 34 SEC (24-38) SARS-CoV-2 Antigen (Rapid) Negative (NEGATIVE) Assessment/Plan Assessment/Plan TIA, history of A. fib on home Eliquis, hypertension -Patient presented after awakening with unilateral weakness she was concerned for stroke -Went to bed normal at 11 awoke 530 with symptoms. Well outside TPA window -CT head and MRI head unremarkable for hemorrhage or ischemic disease -Resume home Eliquis and aspirin. Along with other home meds as indicated -PT OT -Eliquis will serve as DVT prophylaxis -Diet Justifications for Admission Other Justification a fib rvr, vasomotor nephropathy CAROL MORIN MD Jan 25, 2021 17:20
[2021-01-25 19:08] VITALS: BP 125/68
[2021-01-25] MEDS: SENNOSIDES/DOCUSATE 8.6/50MG TABLET. PO SCH (19:57)
[2021-01-25] MEDS ORDERED: ASPIRIN CHEWABLE 81 MG TABLET. PO SCH (21:00)
[2021-01-25 22:24] VITALS: BP 106/65
[2021-01-26 02:13] VITALS: BP 112/63
[2021-01-26 04:26] LABS: CHOLESTEROL/HDL RATIO 3.6
[2021-01-26 07:00] VITALS: BP 137/82
[2021-01-26] MEDS ORDERED: ASPIRIN ENTERIC COATED 81 MG TABLET.DR. PO SCH (08:00)
[2021-01-26 08:03] VITALS: BP 112/63
[2021-01-26] MEDS: APIXABAN 5 MG TABLET. PO SCH (08:03)
[2021-01-26] MEDS: METOPROLOL TART IMMED RELEASE 50 MG TABLET. PO SCH (08:03)
[2021-01-26] MEDS: SENNOSIDES/DOCUSATE 8.6/50MG TABLET. PO SCH (08:04)
--- NOTE | 2021-01-26 08:47 | PDOC ---
PROGRESS NOTES Date of Service DATE: 01/26/21 TIME: 08:43 Assessment Problems Medical Problems: (1) TIA (transient ischemic attack) Status: Acute Transient ischemic attack, patient with atrial fibrillation on apixaban, was also on aspirin. Workup negative, except echo report pending. Plan Continue apixaban I apologize, it turns out patient was on aspirin 81 mg daily at home, the dose was just decreased from 325 mg daily. After discussing risk, benefits, alternatives, reasonable to continue on the low-dose aspirin and the apixaban combination. Patient understands risk of bleeding. Awaiting echocardiogram, Rehab screening done Okay for discharge Follow-up with cardiology as scheduled Follow-up with neurology as needed Stroke education provided Subjective No complaints, wants to go home Objective Vital Signs Date Time Temp Pulse Resp B/P (MAP) Pulse Ox O2 Delivery O2 Flow Rate FiO2 01/26/21 08:03 62 112/63 01/26/21 02:13 98.6 18 97 Room Air 98.6 Intake and Output 01/26/21 07:00 Intake Total 840 ml Balance 840 ml Intake Oral 840 ml # Voids 5 # Bowel Movements 1 PHYSICAL EXAM Alert. Oriented to time, place and person. PERRL. EOMI. CN: no focal findings. Muscle tone: normal. Muscle strength: 5/5 DTR: 2+ Plantar reflex: Flexor Gait: normal. Sensory exam: no abnormal findings. No cerebellar signs elicited. Review of Relevant I have reviewed the following items cielo (where applicable) has been applied. Labs Laboratory Tests Test 01/25/21 09:04 01/25/21 09:25 01/25/21 09:55 01/25/21 12:41 White Blood Count 9.2 x10^3/uL (4.0-11.0) Red Blood Count 4.88 x10^6/uL (3.50-5.40) Hemoglobin 14.9 g/dL (12.0-15.5) Hematocrit 44.6 % (36.0-47.0) Mean Corpuscular Volume 91 fL (79-100) Mean Corpuscular Hemoglobin 31 pg (25-35) Mean Corpuscular Hemoglobin Concent 33 g/dL (31-37) Red Cell Distribution Width 13.5 % (11.5-14.5) Platelet Count 296 x10^3/uL (140-400) Neutrophils (%) (Auto) 59 % (31-73) Lymphocytes (%) (Auto) 22 % (24-48) Monocytes (%) (Auto) 11 % (0-9) Eosinophils (%) (Auto) 8 % (0-3) Basophils (%) (Auto) 1 % (0-3) Neutrophils # (Auto) 5.4 x10^3/uL (1.8-7.7) Lymphocytes # (Auto) 2.0 x10^3/uL (1.0-4.8) Monocytes # (Auto) 1.0 x10^3/uL (0.0-1.1) Eosinophils # (Auto) 0.7 x10^3/uL (0.0-0.7) Basophils # (Auto) 0.1 x10^3/uL (0.0-0.2) Sodium Level 141 mmol/L (136-145) Potassium Level 4.0 mmol/L (3.5-5.1) Chloride Level 104 mmol/L (98-107) Carbon Dioxide Level 25 mmol/L (21-32) Anion Gap 12 (6-14) Blood Urea Nitrogen 22 mg/dL (7-20) Creatinine 1.2 mg/dL (0.6-1.0) Estimated GFR (Cockcroft-Gault) 43.7 BUN/Creatinine Ratio 18 (6-20) Glucose Level 108 mg/dL (70-99) Calcium Level 9.4 mg/dL (8.5-10.1) Magnesium Level 2.2 mg/dL (1.8-2.4) Total Bilirubin 1.0 mg/dL (0.2-1.0) Aspartate Amino Transf (AST/SGOT) 23 U/L (15-37) Alanine Aminotransferase (ALT/SGPT) 28 U/L (14-59) Alkaline Phosphatase 92 U/L (46-116) Troponin I Quantitative < 0.017 ng/mL (0.000-0.055) YK-Ymv-O-Type Natriuretic Peptide 899 pg/mL (0-449) Total Protein 7.9 g/dL (6.4-8.2) Albumin 3.7 g/dL (3.4-5.0) Albumin/Globulin Ratio 0.9 (1.0-1.7) Urine Collection Type Unknown Urine Color Yellow Urine Clarity Clear Urine pH 6.0 (<5.0-8.0) Urine Specific [place] <=1.005 (1.000-1.030) Urine Protein Negative mg/dL (NEG-TRACE) Urine Glucose (UA) Negative mg/dL (NEG) Urine Ketones (Stick) Negative mg/dL (NEG) Urine Blood Trace (NEG) Urine Nitrite Negative (NEG) Urine Bilirubin Negative (NEG) Urine Urobilinogen Dipstick 0.2 mg/dL (0.2 mg/dL) Urine Leukocyte Esterase Negative (NEG) Urine RBC 1-2 /HPF (0-2) Urine WBC Occ /HPF (0-4) Urine Squamous Epithelial Cells Few /LPF Urine Renal Epithelial Cells Occ /LPF Urine Bacteria 0 /HPF (0-FEW) Prothrombin Time 14.5 SEC (11.7-14.0) Prothromb Time International Ratio 1.1 (0.8-1.1) Activated Partial Thromboplast Time 34 SEC (24-38) SARS-CoV-2 Antigen (Rapid) Negative (NEGATIVE) Test 01/26/21 04:00 Triglycerides Level 98 mg/dL (0-150) Cholesterol Level 200 mg/dL (0-200) LDL Cholesterol, Calculated 125 mg/dL (0-100) VLDL Cholesterol, Calculated 20 mg/dL (0-40) Non-HDL Cholesterol Calculated 145 mg/dL (0-129) HDL Cholesterol 55 mg/dL (40-60) Cholesterol/HDL Ratio 3.6 Laboratory Tests Test 01/25/21 09:04 01/25/21 09:25 01/25/21 09:55 01/25/21 12:41 White Blood Count 9.2 x10^3/uL (4.0-11.0) Red Blood Count 4.88 x10^6/uL (3.50-5.40) Hemoglobin 14.9 g/dL (12.0-15.5) Hematocrit 44.6 % (36.0-47.0) Mean Corpuscular Volume 91 fL (79-100) Mean Corpuscular Hemoglobin 31 pg (25-35) Mean Corpuscular Hemoglobin Concent 33 g/dL (31-37) Red Cell Distribution Width 13.5 % (11.5-14.5) Platelet Count 296 x10^3/uL (140-400) Neutrophils (%) (Auto) 59 % (31-73) Lymphocytes (%) (Auto) 22 % (24-48) Monocytes (%) (Auto) 11 % (0-9) Eosinophils (%) (Auto) 8 % (0-3) Basophils (%) (Auto) 1 % (0-3) Neutrophils # (Auto) 5.4 x10^3/uL (1.8-7.7) Lymphocytes # (Auto) 2.0 x10^3/uL (1.0-4.8) Monocytes # (Auto) 1.0 x10^3/uL (0.0-1.1) Eosinophils # (Auto) 0.7 x10^3/uL (0.0-0.7) Basophils # (Auto) 0.1 x10^3/uL (0.0-0.2) Sodium Level 141 mmol/L (136-145) Potassium Level 4.0 mmol/L (3.5-5.1) Chloride Level 104 mmol/L (98-107) Carbon Dioxide Level 25 mmol/L (21-32) Anion Gap 12 (6-14) Blood Urea Nitrogen 22 mg/dL (7-20) Creatinine 1.2 mg/dL (0.6-1.0) Estimated GFR (Cockcroft-Gault) 43.7 BUN/Creatinine Ratio 18 (6-20) Glucose Level 108 mg/dL (70-99) Calcium Level 9.4 mg/dL (8.5-10.1) Magnesium Level 2.2 mg/dL (1.8-2.4) Total Bilirubin 1.0 mg/dL (0.2-1.0) Aspartate Amino Transf (AST/SGOT) 23 U/L (15-37) Alanine Aminotransferase (ALT/SGPT) 28 U/L (14-59) Alkaline Phosphatase 92 U/L (46-116) Troponin I Quantitative < 0.017 ng/mL (0.000-0.055) IS-Vbt-E-Type Natriuretic Peptide 899 pg/mL (0-449) Total Protein 7.9 g/dL (6.4-8.2) Albumin 3.7 g/dL (3.4-5.0) Albumin/Globulin Ratio 0.9 (1.0-1.7) Urine Collection Type Unknown Urine Color Yellow Urine Clarity Clear Urine pH 6.0 (<5.0-8.0) Urine Specific [place] <=1.005 (1.000-1.030) Urine Protein Negative mg/dL (NEG-TRACE) Urine Glucose (UA) Negative mg/dL (NEG) Urine Ketones (Stick) Negative mg/dL (NEG) Urine Blood Trace (NEG) Urine Nitrite Negative (NEG) Urine Bilirubin Negative (NEG) Urine Urobilinogen Dipstick 0.2 mg/dL (0.2 mg/dL) Urine Leukocyte Esterase Negative (NEG) Urine RBC 1-2 /HPF (0-2) Urine WBC Occ /HPF (0-4) Urine Squamous Epithelial Cells Few /LPF Urine Renal Epithelial Cells Occ /LPF Urine Bacteria 0 /HPF (0-FEW) Prothrombin Time 14.5 SEC (11.7-14.0) Prothromb Time International Ratio 1.1 (0.8-1.1) Activated Partial Thromboplast Time 34 SEC (24-38) SARS-CoV-2 Antigen (Rapid) Negative (NEGATIVE) Test 01/26/21 04:00 Triglycerides Level 98 mg/dL (0-150) Cholesterol Level 200 mg/dL (0-200) LDL Cholesterol, Calculated 125 mg/dL (0-100) VLDL Cholesterol, Calculated 20 mg/dL (0-40) Non-HDL Cholesterol Calculated 145 mg/dL (0-129) HDL Cholesterol 55 mg/dL (40-60) Cholesterol/HDL Ratio 3.6 Medications Current Medications Iohexol (Omnipaque 300 Mg/ml) 60 ml 1X ONCE IV Last administered on 01/25/21at 10:47; Start 01/25/21 at 10:30; Stop 01/25/21 at 10:31; Status DC Info (CONTRAST GIVEN -- Rx MONITORING) 1 each PRN DAILY PRN MC SEE COMMENTS; Start 01/25/21 at 10:45; Stop 01/27/21 at 10:44 Ondansetron HCl (Zofran) 4 mg PRN Q8HRS PRN IVP NAUSEA/VOMITING; Start 01/25/21 at 12:15; Stop 01/26/21 at 12:14 Acetaminophen (Tylenol) 650 mg PRN Q6HRS PRN PO MILD PAIN / TEMP > 100.3'F; Start 01/25/21 at 12:30 Ondansetron HCl (Zofran) 4 mg PRN Q6HRS PRN IVP NAUSEA/VOMITING; Start 01/25/21 at 12:45 Calcium Carbonate/ Glycine (Tums) 500 mg PRN Q3HRS PRN PO UPSET STOMACH; Start 01/25/21 at 12:45 Zolpidem Tartrate (Ambien) 5 mg PRN QHS PRN PO INSOMNIA, MAY REPEAT IN 1HR; Start 01/25/21 at 12:45 Info (Non-Icu Electrolyte Protocol) 1 ea PRN DAILY PRN MC SEE COMMENTS; Start 01/25/21 at 12:45 Oxycodone HCl (Roxicodone) 5 mg PRN Q3HRS PRN PO BREAKTHROUGH PAIN; Start 01/25/21 at 12:45 Oxycodone/ Acetaminophen (Percocet 5/325) 1 tab PRN Q4HRS PRN PO MILD PAIN, 1ST CHOICE; Start 01/25/21 at 12:45 Oxycodone/ Acetaminophen (Percocet 5/325) 2 tab PRN Q4HRS PRN PO MODERATE PAIN, SEVERE PAIN; Start 01/25/21 at 12:45 Acetaminophen (Tylenol) 650 mg PRN Q6HRS PRN PO Headaches, Temp > 101.5F; Start 01/25/21 at 12:45 Senna/Docusate Sodium (Senna Plus) 1 tab BID PO ; Start 01/25/21 at 21:00 Metoprolol Tartrate (Lopressor) 50 mg BID PO Last administered on 01/26/21at 08:03; Start 01/25/21 at 13:00 Aspirin (Ecotrin) 81 mg DAILYWBKFT PO ; Start 01/26/21 at 08:00; Stop 01/25/21 at 15:20; Status DC Apixaban (Eliquis) 5 mg BID PO Last administered on 01/26/21at 08:03; Start 01/25/21 at 13:00 Info (Anti-Coagulation Monitoring By Pharmacy) 1 each PRN DAILY PRN MC PER PROTOCOL; Start 01/25/21 at 12:45 Amlodipine Besylate (Norvasc) 10 mg DAILY PO Last administered on 01/26/21at 08:03; Start 01/26/21 at 09:00 Furosemide (Lasix) 20 mg PRN DAILY PRN PO Edema; Start 01/25/21 at 15:45 Aspirin (Aspirin Chewable) 81 mg HS PO ; Start 01/25/21 at 21:00; Stop 01/25/21 at 17:21; Status DC Active Scripts Active Reported Eliquis (Apixaban) 5 Mg Tablet 5 Mg PO DAILY Amlodipine Besylate 10 Mg Tablet 10 Mg PO DAILY Lasix (Furosemide) 20 Mg Tablet 20 Mg PO PRN DAILY PRN Children's Aspirin (Aspirin) 81 Mg Tab.chew 81 Mg PO HS Metoprolol Tartrate 50 Mg Tablet 1 Tab PO BID Vitals/I & O Vital Sign - Last 24 Hours 01/25/21 01/25/21 01/25/21 01/25/21 09:10 09:15 09:30 09:45 Temp 98.1 98.1 98.1 98.1 Pulse 65 65 69 Resp 18 18 18 B/P (MAP) 149/106 (120) 155/86 (109) 142/85 (104) 132/77 (95) Pulse Ox 98 98 98 O2 Delivery Room Air Room Air Room Air 01/25/21 01/25/21 01/25/21 01/25/21 10:00 10:30 11:00 11:30 Pulse 72 68 64 68 Resp 18 16 16 18 B/P (MAP) 128/77 (94) 132/77 (95) 128/79 (95) 142/92 (109) Pulse Ox 98 98 98 98 O2 Delivery Room Air Room Air Room Air Room Air 01/25/21 01/25/21 01/25/21 01/25/21 12:00 14:28 14:53 15:00 Temp 98.6 98.6 Pulse 76 76 68 Resp 18 17 B/P (MAP) 132/92 (105) 132/92 111/78 (89) Pulse Ox 98 99 O2 Delivery Room Air Room Air Room Air 01/25/21 01/25/21 01/25/21 01/25/21 19:08 19:21 19:57 22:24 Temp 97.8 98.8 97.8 98.8 Pulse 65 65 63 Resp 18 18 B/P (MAP) 125/68 (87) 125/68 106/65 (79) Pulse Ox 94 96 O2 Delivery Room Air Room Air Room Air 01/26/21 01/26/21 01/26/21 02:13 08:03 08:03 Temp 98.6 98.6 Pulse 58 62 62 Resp 18 B/P (MAP) 112/63 (79) 112/63 112/63 Pulse Ox 97 O2 Delivery Room Air Intake and Output 01/25/21 01/25/21 01/26/21 15:00 23:00 07:00 Intake Total 240 ml 600 ml Balance 240 ml 600 ml Images Brain MRI without contrast. 01/25/2021 2:53 PM HISTORY: Right hemiparesis. Stroke. TECHNIQUE: Multiplanar, multisequence magnetic resonance imaging of the brain was performed without contrast. COMPARISON: CT dated 01/25/2021. FINDINGS: There is no restricted diffusion to suggest acute or subacute infarction. There is no susceptibility effect to suggest hemorrhage. There is no mass effect or midline shift. There is no hydrocephalus. There are multiple scattered focal areas of signal change throughout the cerebral white matter, likely due to chronic small vessel disease. The orbits are unremarkable. There is a small left maxillary sinus mucous retention cyst. There is minimal mastoid fluid. There are normal flow voids within the cerebral vessels. There is no suspicious calvarial lesion. There is a prominent sella. There is a suspected partially empty sella. There is incidental torus palatini. IMPRESSION: 1. No acute intracranial finding. 2. Scattered areas of signal change throughout the cerebral white matter, likely due to chronic small vessel disease. Justicifation of Admission Dx: Justifications for Admission: Justification of Admission Dx: No CHF: Cardiac Arrhythmias BRYCE HARPER MD Jan 26, 2021 08:47
[2021-01-26] MEDS ORDERED: ASPIRIN CHEWABLE 81 MG TABLET. PO SCH (09:00)
--- NOTE | 2021-01-26 10:06 | PDOC3 ---
[facility]-Discharge Summary Date of Admission: Date of Admission: Jan 25, 2021 Date of Discharge: Date of Discharge: Jan 26, 2021 Admission Diagnosis: Problems: (1) TIA (transient ischemic attack) Discharge Diagnosis: Discharge Diagnosis: Same Consults: Consults: Neurology Procedures: Procedures: EXAM: Brain MRI without contrast. HISTORY: Right hemiparesis. Stroke. TECHNIQUE: Multiplanar, multisequence magnetic resonance imaging of the brain was performed without contrast. COMPARISON: CT dated 01/25/2021. FINDINGS: There is no restricted diffusion to suggest acute or subacute infarction. There is no susceptibility effect to suggest hemorrhage. There is no mass effect or midline shift. There is no hydrocephalus. There are multiple scattered focal areas of signal change throughout the cerebral white matter, likely due to chronic small vessel disease. The orbits are unremarkable. There is a small left maxillary sinus mucous retention cyst. There is minimal mastoid fluid. There are normal flow voids within the cerebral vessels. There is no suspicious calvarial lesion. There is a prominent sella. There is a suspected partially empty sella. There is incidental torus palatini. IMPRESSION: 1. No acute intracranial finding. 2. Scattered areas of signal change throughout the cerebral white matter, likely due to chronic small vessel disease. Hospital Course: Hospital Course: HPI: This patient is a 75-year-old white female who presents to the emergency room this morning due to right-sided weakness upon waking. Patient reports she went to bed at around 11 PM last night and awoke this morning at 530 to use the restroom and felt very weak throughout her entire right side. Try to go walk to the restroom however she try to ambulate since was having significant difficulty. She has history of atrial fibrillation on home Eliquis and hypertension. Presented to the emergency room here and there is concern for ischemic stroke so code stroke was called. Patient did have deficits on exam per report. She was out of the window for TPA. Neurology evaluated in the emergency room. CT head showed no acute hemorrhage. Recommend brain MRI for further ischemic work-up. This was performed and ruled out ischemic work-up. Patient's symptoms improved quite notably in the emergency room. 01/26 Patient evaluated and examined at bedside. She did not have any complaints today. Would like to discharge home today. Has been evaluated by neurology who agreed with discharge today. Discussed with her PCP follow-up and importance of medication adherence. Spent approximately 32 minutes planning coordinating and [id number] with the patient regarding discharge. Disposition: Disposition/Orders: D/C to Home Activity: Activity: Resume previous activity Diet: Diet: Regular Medications: Home Meds Reported Medications Apixaban (ELIQUIS) 5 Mg Tablet, 5 MG PO DAILY for A Fib, TAB 01/25/21 Amlodipine Besylate (AMLODIPINE BESYLATE) 10 Mg Tablet, 10 MG PO DAILY for HTN, TAB 01/25/21 Furosemide (LASIX) 20 Mg Tablet, 20 MG PO PRN DAILY PRN for Edema, TAB 01/25/21 Aspirin (Children's Aspirin) 81 Mg Tab.chew, 81 MG PO HS for Heart health, TAB.CHEW 01/25/21 Metoprolol Tartrate (METOPROLOL TARTRATE) 50 Mg Tablet, 1 TAB PO BID for afib, #60 TAB 5 Refills 05/31/20 Scheduled Amlodipine Besylate (Amlodipine Besylate), 10 MG PO DAILY, (Reported) Apixaban (Eliquis), 5 MG PO DAILY, (Reported) Aspirin (Children's Aspirin), 81 MG PO HS, (Reported) Metoprolol Tartrate (Metoprolol Tartrate), 1 TAB PO BID, (Reported) Scheduled PRN Furosemide (Lasix), 20 MG PO PRN DAILY PRN for Edema, (Reported) Justicifation of Admission Dx: Justifications for Admission: Justification of Admission Dx: No CHF: Cardiac Arrhythmias CAROL MORIN MD Jan 26, 2021 10:06
--- NOTE | 2021-01-26 10:16 | CARD ---
MR#: [id number] Date of Study: 01/25/2021 Ordering Physician: BRYCE HARPER, Referring Physician: BRYCE HARPER, Tech: Caridad Fosskatherine, [facility] APPROVED REPORT EXAM: Two-dimensional and M-mode echocardiogram with Doppler and color Doppler. Other Information Quality : AverageHR: 61bpm INDICATION CVA/TIA RISK FACTORS Hypertension Hyperlipidemia 2D DIMENSIONS Left Atrium(2D)2.1 (1.6-4.0cm)IVSd1.0 (0.7-1.1cm) Aortic Root(2D)3.6 (2.0-3.7cm)LVDd4.7 (3.9-5.9cm) LVOT Diameter2.1 (1.8-2.4cm)PWd1.0 (0.7-1.1cm) LVDs3.3 (2.5-4.0cm)FS (%) 29.5 % SV57.4 mlLVEF(%)56.4 (>50%) Aortic Valve AoV Peak Juanjo.134.4cm/sAoV VTI37.2cm AO Peak GR.7.2mmHgLVOT VTI 25.52cm AO Mean GR.4mmHg Mitral Valve MV E Rjrjagha06.5cm/sMV E Peak Gr.3mmHg MV DECEL [id number] A Stuijgkp32.2cm/s MV E Mean Gr.1mmHgE/A Ratio0.8 TDI Lateral E' P. V7.47cm/sMedial E' P. V7.40cm/s E/Lateral E'7.8E/Medial E'7.9 Tricuspid Valve TR P. Rnfvbtcf275ep/sRAP [id number] TR Peak Gr.35ztKsYVYU50xmTv LEFT VENTRICLE The left ventricle is normal size. There is normal left ventricular wall thickness. The left ventricu lar systolic function is normal and the ejection fraction is within normal range. The Ejection Fracti on is 55%. There is normal LV segmental wall motion. Transmitral Doppler flow pattern is Grade II-pse udonormal filling dynamics. RIGHT VENTRICLE The right ventricle is normal size. There is normal right ventricular wall thickness. The right ventr icular systolic function is normal. ATRIA The left atrium is not well visualized. The right atrium size is normal. The interatrial septum is in tact with no evidence for an atrial septal defect or patent foramen ovale as noted on 2-D or Doppler imaging. AORTIC VALVE The aortic valve is normal in structure and function. Doppler and Color Flow revealed no significant aortic regurgitation. There is no significant aortic valvular stenosis. Calculated aortic valve area is 2.36 cm2 with maximum pressure gradient of 8 mmHg and mean pressure gradient of 4 mmHg. MITRAL VALVE The mitral valve is normal in structure and function. There is no evidence of mitral valve prolapse. There is no mitral valve stenosis. Doppler and Color-flow revealed trace mitral regurgitation. TRICUSPID VALVE The tricuspid valve is normal in structure and function. Doppler and Color Flow revealed trace tricus pid regurgitation with an estimated PAP of 30 mmHg. There is no tricuspid valve stenosis. PULMONIC VALVE Doppler and Color Flow revealed trace pulmonic valvular regurgitation. There is no pulmonic valvular stenosis. GREAT VESSELS The aortic root is normal in size. The ascending aorta is mildly dilated measuring 3.9 cm. The IVC is normal in size and collapses >50% with inspiration. PERICARDIAL EFFUSION There is no evidence of significant pericardial effusion. Critical Notification Critical Value: No <Conclusion> The left ventricular systolic function is normal and the ejection fraction is within normal range. Th e Ejection Fraction is 55%. There is normal LV segmental wall motion. The ascending aorta is mildly dilated measuring 3.9 cm. Signed by : Siddhartha Heath, Electronically Approved : 01/26/2021 10:15:47
--- NOTE | 2021-01-26 10:27 | NUR ---
SS following for discharge planning. SS reviewed pt chart and discussed with pt RN. Pt is from home with spouse and is currently on room air. COVID19 negative. Pt on PO diet. Discharge order on the chart for home with self care.
--- NOTE | 2021-01-26 11:45 | NUR ---
Discharge Note: NEW MURPHY[facility] Discharge instructions and discharge home medications reviewed with Patient and a copy given. All questions have been answered and understanding verbalized. The following instructions and handouts were given: transient ischemic attack Patient discharged to home with self care via wheelchair
[2021-01-26 23:13] LABS: HEMOGLOBIN A1C 5.7 % (4.8-5.6)
== END 2021-01-26 11:45 | disposition home or self-care (01) ==
LOC: ER 08:51 → 6 SOUTH 11:51 → INTOOBSV 11:51
PROVIDERS: ADMIT Internal Medicine; ATTEND Internal Medicine
DX: G45.9 Transient cerebral ischemic attack, unspecified (principal); Z20.822 Contact with and (suspected) exposure to COVID-19; I11.0 Hypertensive heart disease with heart failure; I50.9 Heart failure, unspecified; I48.91 Unspecified atrial fibrillation; G81.91 Hemiplegia, unspecified affecting right dominant side; I63.9 Cerebral infarction, unspecified; N17.0 Acute kidney failure with tubular necrosis; E78.5 Hyperlipidemia, unspecified; K21.9 Gastro-esophageal reflux disease without esophagitis; K59.00 Constipation, unspecified; R29.700 NIHSS score 0; R29.810 Facial weakness; Z79.01 Long term (current) use of anticoagulants; Z86.16 Personal history of COVID-19; Z87.891 Personal history of nicotine dependence; Z90.710 Acquired absence of both cervix and uterus; Z79.82 Long term (current) use of aspirin
CPT/HCPCS: 36415; 70450; 70496; 70498; 70551; 80053; 80061; 81001; 83036; 83735; 83880; 84484; 85025; 85610; 85730; 87426; 92610; 93005; 93306; 99285; G0378; Q9967; U0003; U0005; G0379

== ENCOUNTER 2021-07-27 10:44 | Emergency (ER) | payer MEDICARE ==
[~2021-07-27] VITALS: Ht 162.6 cm; Wt 108.1 kg
[~2021-07-27 10:44] MED LIST changes: +APIX5TAB PO; +ASPI81TA59 PO; +FURO-69 PO
[2021-07-27] MEDS ORDERED: METOPROLOL IV PUSH 5 MG/5 ML VIAL. IVP ONE (11:00)
--- NOTE | 2021-07-27 11:03 | PHYS DOC ---
Past Medical History Past Medical History: A-Fib, Hypertension Additional Past Medical Histor: heart murmur, COVID 08 April 2020 Past Surgical History: Hysterectomy Smoking Status: Never Smoker Alcohol Use: None Adult General Chief Complaint Chief Complaint: DIZZY/LIGHT HEADED HPI HPI Patient is a 76 year old female presenting to emergency department for evaluation of dizziness when she stood up this morning she felt a very lightheaded sensation and she felt tired. She went to the urgent care for the symptoms and they told her that her heart rate was fast and that she needed to go to the emergency department. Patient has a history of intermittent atrial fibrillation and takes Eliquis aspirin Norvasc and metoprolol. She says she has not missed any of her medications. Patient says that she does feel slightly short of breath especially when she ambulates but she denies any chest pain diaphoresis nausea vomiting vision changes unilateral weakness numbness or tingling. Her senior software project manager is Dr. Arambula. She is nontoxic-appearing but is tachycardic and hypertensive. Review of Systems Review of Systems Constitutional: Denies fever or chills [] Eyes: Denies change in visual acuity, redness, or eye pain [] HENT: Denies nasal congestion or sore throat [] Respiratory: Denies cough. + shortness of breath [] Cardiovascular: No additional information not addressed in HPI [] GI: Denies abdominal pain, nausea, vomiting, bloody stools or diarrhea [] : Denies dysuria or hematuria [] Musculoskeletal: Denies back pain or joint pain [] Integument: Denies rash or skin lesions [] Neurologic: Denies headache, focal weakness or sensory changes [] All other systems were reviewed and found to be within normal limits, except as documented in this note. Current Medications Current Medications Current Medications Medications (Trade) Dose Ordered Sig/Sherrill Start Time Stop Time Status Last Admin Dose Admin Metoprolol Tartrate (Lopressor Vial) 5 mg 1X ONCE 07/27/21 11:00 07/27/21 11:01 DC Sodium Chloride 1,000 ml @ 1,000 mls/hr 1X ONCE 07/27/21 12:15 07/27/21 13:14 DC 07/27/21 12:08 1,000 MLS/HR Allergies Allergies Allergies Coded Allergies Type Severity Reaction Last Updated Verified NAFISA Inhibitors Allergy Intermediate 01/25/21 Yes lisinopril Allergy Intermediate 06/29/20 Yes Physical Exam Physical Exam Constitutional: Well developed, well nourished, no acute distress, non-toxic appearance. [] HENT: Normocephalic, atraumatic, bilateral external ears normal, oropharynx moist, no oral exudates, nose normal. [] Eyes: PERRLA, EOMI, conjunctiva normal, no discharge. [] Neck: Normal range of motion, no tenderness, supple, no stridor. [] Cardiovascular:Heart rate regular rhythm, no murmur [] Lungs & Thorax: Bilateral breath sounds clear to auscultation [] Abdomen: Bowel sounds normal, soft, no tenderness, no masses, no pulsatile masses. [] Skin: Warm, dry, no erythema, no rash. [] Back: No tenderness, no CVA tenderness. [] Extremities: No tenderness, no cyanosis, no clubbing, ROM intact, no edema. [] Neurologic: Alert and oriented X 3, normal motor function, normal sensory function, no focal deficits noted. [] Psychologic: Affect normal, judgement normal, mood normal. [] Current Patient Data Vital Signs Vital Signs Date Time Temp Pulse Resp B/P (MAP) Pulse Ox O2 Delivery O2 Flow Rate FiO2 07/27/21 12:01 98.0 130 20 106/80 (89) 99 Room Air 98.0 Lab Values Laboratory Tests Test 07/27/21 11:04 07/27/21 11:30 Urine Collection Type Unknown Urine Color (Auto) Yellow Urine Turbidity Clear Urine pH (Auto) 5.0 (<5.0-8.0) Urine Specific [place] 1.015 (1.000-1.030) Urine Protein (Auto) Negative mg/dL (Negative) Urine Glucose (Auto)(UA) Negative mg/dL (Negative) Urine Ketones (Auto) Negative mg/dL (Negative) Urine Blood (Auto) Small (Negative) Urine Nitrite Negative (Negative) Urine Bilirubin (Auto) Negative (Negative) Urine Urobilinogen (Auto) Normal mg/dL (Normal) Urine Leukocyte Esterase (Auto) Small (Negative) Urine RBC Occ /HPF (0-2) Urine WBC 1-4 /HPF (0-4) Urine Squamous Epithelial Cells Mod /LPF Urine Transitional Epithelial Cells Occ /LPF Urine Renal Epithelial Cells Occ /LPF Urine Bacteria 0 /HPF (0-FEW) White Blood Count 8.0 x10^3/uL (4.0-11.0) Red Blood Count 4.93 x10^6/uL (3.50-5.40) Hemoglobin 14.7 g/dL (12.0-15.5) Hematocrit 44.7 % (36.0-47.0) Mean Corpuscular Volume 91 fL (79-100) Mean Corpuscular Hemoglobin 30 pg (25-35) Mean Corpuscular Hemoglobin Concent 33 g/dL (31-37) Red Cell Distribution Width 14.0 % (11.5-14.5) Platelet Count 263 x10^3/uL (140-400) Neutrophils (%) (Auto) 61 % (31-73) Lymphocytes (%) (Auto) 21 % (24-48) L Monocytes (%) (Auto) 10 % (0-9) H Eosinophils (%) (Auto) 7 % (0-3) H Basophils (%) (Auto) 1 % (0-3) Neutrophils # (Auto) 4.9 x10^3/uL (1.8-7.7) Lymphocytes # (Auto) 1.7 x10^3/uL (1.0-4.8) Monocytes # (Auto) 0.8 x10^3/uL (0.0-1.1) Eosinophils # (Auto) 0.5 x10^3/uL (0.0-0.7) Basophils # (Auto) 0.1 x10^3/uL (0.0-0.2) Prothrombin Time 15.9 SEC (11.7-14.0) H Prothrombin Time INR 1.3 (0.8-1.1) H Activated Partial Thromboplast Time 34 SEC (24-38) Sodium Level 138 mmol/L (136-145) Potassium Level 4.4 mmol/L (3.5-5.1) Chloride Level 104 mmol/L (98-107) Carbon Dioxide Level 22 mmol/L (21-32) Anion Gap 12 (6-14) Blood Urea Nitrogen 45 mg/dL (7-20) H Creatinine 1.3 mg/dL (0.6-1.0) H Estimated GFR (Cockcroft-Gault) 39.7 BUN/Creatinine Ratio 35 (6-20) H Glucose Level 101 mg/dL (70-99) H Calcium Level 10.1 mg/dL (8.5-10.1) Total Bilirubin 1.0 mg/dL (0.2-1.0) Aspartate Amino Transferase (AST) 24 U/L (15-37) Alanine Aminotransferase (ALT) 24 U/L (14-59) Alkaline Phosphatase 86 U/L (46-116) Troponin I High Sensitivity 11 ng/L (4-50) BY-Vvu-U-Type Natriuretic Peptide 1226 pg/mL (0-449) H Total Protein 8.3 g/dL (6.4-8.2) H Albumin 3.8 g/dL (3.4-5.0) Albumin/Globulin Ratio 0.8 (1.0-1.7) L Thyroid Stimulating Hormone (TSH) 6.686 uIU/mL (0.358-3.74) H Laboratory Tests 07/27/21 11:30 Laboratory Tests 07/27/21 11:30 EKG EKG Irregular and tachycardic rhythm that appears to be atrial flutter with intermittent bouts of fibrillation as well. No ST elevation or depression but there are inverted T waves in leads V4 through V6. Radiology/Procedures Radiology/Procedures [] Course & Med Decision Making Course & Med Decision Making Patient will get IV metoprolol boluses for her A. fib/flutter RVR. Rhythm converted to sinus in the 60s and patient does feel better. I spoke to Dr. Arambula and he stated his nurse practitioner Ivette is going to come evaluate patient. I received a call from Lori the cardiology nurse practitioner and she said she was going to come see the patient however we then received another call from the cardiology department and they stated that Dr. Arambula wanted to come see the patient prior to discharge but he had to go to a heart catheterization. I explained the situation to the patient and she says she felt well and was up ambulating around the emergency department with no dizziness shortness of breath pain or other concerns and she requested to be discharged. She said she was not willing to wait any longer given she had been here so long and that she was asymptomatic and said that she would follow-up with her senior software project manager as an out patient. Patient aware and agreeable with plan for discharge verbalized understanding the need for short-term cardiology follow-up and strict ED return precaution discussed worsening pain shortness of breath dizziness with general concerns. Dragon Disclaimer Dragon Disclaimer This electronic medical record was generated, in whole or in part, using a voice recognition dictation system. Departure Departure Impression: Primary Impression: Atrial fibrillation with RVR Disposition: HOME / SELF CARE / HOMELESS Condition: STABLE Referrals: MARY WILD (PCP) ANY OLSON DO Jul 27, 2021 11:02
--- NOTE | 2021-07-27 11:46 | RAD ---
EXAMINATION: XR CHEST 1V CLINICAL HISTORY: Shortness of breath. EXAM DATE/TIME: 07/27/2021 11:18 AM COMPARISON: 05/31/2020 FINDINGS: Lines, Tubes, and Devices: None. Cardiomediastinal Silhouette: Normal heart size. Aortic atherosclerotic calcification. Lungs and Pleura: Mild left basilar subsegmental atelectasis and/or scarring. No evidence of pleural effusion. Pulmonary vasculature unremarkable. Bones and Soft Tissues: No acute osseous abnormality. IMPRESSION: Mild left basilar subsegmental atelectasis and/or scarring. Electronically signed by: Handy Cota DO (07/27/2021 11:44 AM) [id number]
[2021-07-27 11:48] LABS: BACTERIA,URINE 0 /HPF (0-FEW); RBC,URINE OCC /HPF (0-2)
[2021-07-27 11:55] LABS: BASO # 0.1 x10^3/uL (0.0-0.2); BASO % 1 % (0-3); EOS # 0.5 x10^3/uL (0.0-0.7); EOS % 7 % (0-3); HEMATOCRIT 44.7 % (36.0-47.0); HEMOGLOBIN 14.7 g/dL (12.0-15.5); LYMPH # 1.7 x10^3/uL (1.0-4.8); LYMPH % 21 % (24-48); MEAN CORPUSCULAR HEMOGLOBIN 30 pg (25-35); MEAN CORPUSCULAR HGB CONC 33 g/dL (31-37); MEAN CORPUSCULAR VOLUME 91 fL (79-100); MONO # 0.8 x10^3/uL (0.0-1.1); MONO % 10 % (0-9); NEUT # 4.9 x10^3/uL (1.8-7.7); NEUT % 61 % (31-73); PLATELET COUNT 263 x10^3/uL (140-400); RED BLOOD COUNT 4.93 x10^6/uL (3.50-5.40)
[2021-07-27 12:09] LABS: CALCIUM 10.1 mg/dL (8.5-10.1); CREATININE 1.3 mg/dL (0.6-1.0); GFR 39.7; POTASSIUM 4.4 mmol/L (3.5-5.1)
[2021-07-27 12:11] LABS: PROTHROMBIN TIME PATIENT 15.9 SEC (11.7-14.0)
[2021-07-27] MEDS: METOPROLOL IV PUSH 5 MG/5 ML VIAL. IVP ONE (12:11)
[2021-07-27 12:14] LABS: ALBUMIN 3.8 g/dL (3.4-5.0); ALBUMIN/GLOBULIN RATIO 0.8 (1.0-1.7); TOTAL PROTEIN 8.3 g/dL (6.4-8.2)
[2021-07-27] MEDS ORDERED: IV NORMAL SALINE 1000ML BAG 1,000 ML IV ONE (12:15)
--- NOTE | 2021-07-27 13:48 | PDOC2 ---
SILVINA HEADLEY LIFE ENRICHMENT MANAGER 07/27/21 1348: CARDIAC CONSULT DATE OF CONSULT Date of Consult DATE: 07/27/21 TIME: 13:47 REASON FOR CONSULT Reason for Consult: AFIB REFERRING PHYSICIAN Referring Physician: Dr. Ceja SOURCE Source: Chart review, Patient HISTORY OF PRESENT ILLNESS HISTORY OF PRESENT ILLNESS This is a 76 yo female, with a history of AFIB, who presented secondary to dizziness. Was noted in AFIB with RVR. She received metoprolol 5mg IVP and converted back to SR. Patient reports she began feeling lightheaded yesterday evening around 7pm. Could tell her heart was beating fast and rate was elevated per her vital sign machine. Star slightly short of breath with exertion. She thought maybe a good night of rest would improve e symptoms. Unfortunately, she continued to have symptoms this morning so she came to the ED for further evaluations and treatment. Reports compliance with medications including metoprolol and Eliquis. Is feeling much better no follow conversion to SR and would like to go home. Has been up and ambulated to bathroom without and lightheadedness. PAST MEDICAL HISTORY Past Medical History Cardiovascular: HTN, AFIB Pulmonary: Pneumonia, Other (Covid-19) CENTRAL NERVOUS SYSTEM: Other (No pertinent history) GI: Constipation Heme/Onc: No pertinent hx Hepatobiliary: Hep A/B/C (as a child) Psych: No pertinent hx Musculoskeletal: Osteoarthritis Rheumatologic: No pertinent hx Infectious disease: No pertinent hx Renal/: UTI Endocrine: No pertinent hx Dermatology: No pertinent hx PAST SURGICAL HISTORY Past Surgical History Arthroscopy (right ankle), , Hysterectomy FAMILY HISTORY Family History: Heart Disease SOCIAL HISTORY Social History Smoke: No ALCOHOL: none Drugs: None Lives: with Family (spouse) CURRENT MEDICATIONS CURRENT MEDICATIONS Current Medications Medications (Trade) Dose Ordered Sig/Sherrill Route PRN Reason Start Time Stop Time Status Last Admin Dose Admin Metoprolol Tartrate (Lopressor Vial) 5 mg 1X ONCE IVP 07/27/21 11:00 07/27/21 11:01 DC 07/27/21 11:45 Sodium Chloride 1,000 ml @ 1,000 mls/hr 1X ONCE IV 07/27/21 12:15 07/27/21 13:14 DC 07/27/21 12:08 ALLERGIES ALLERGIES: Coded Allergies: NAFISA Inhibitors (Verified Allergy, Intermediate, 01/25/21) lisinopril (Verified Allergy, Intermediate, 06/29/20) ROS Review of System 14 point ROS evaluated with pertinent positives noted per HPI PHYSICAL EXAM PHYSICAL EXAM General: Alert, Oriented X3, Cooperative, No acute distress HEENT: Atraumatic, Mucous membr. moist/pink Lungs: Clear to auscultation, Normal air movement Heart: Regular rate (SR), Normal S1, Normal S2, No murmurs Abdomen: Soft, No tenderness Extremities: No cyanosis, No edema Skin: No breakdown, No significant lesion Neuro: Normal speech, Sensation intact Psych/Mental Status: Mental status NL, Mood NL MUSCULOSKELETAL: Osteoarthritic changes both hands VITALS/I&O VITALS/I&O: Vital Signs Date Time Temp Pulse Resp B/P (MAP) Pulse Ox O2 Delivery O2 Flow Rate FiO2 07/27/21 12:01 98.0 130 20 106/80 (89) 99 Room Air 98.0 LABS Lab: Laboratory Tests Test 07/27/21 11:04 07/27/21 11:30 Urine Collection Type Unknown Urine Color (Auto) Yellow Urine Turbidity Clear Urine pH (Auto) 5.0 (<5.0-8.0) Urine Specific [place] 1.015 (1.000-1.030) Urine Protein (Auto) Negative mg/dL (Negative) Urine Glucose (Auto)(UA) Negative mg/dL (Negative) Urine Ketones (Auto) Negative mg/dL (Negative) Urine Blood (Auto) Small (Negative) Urine Nitrite Negative (Negative) Urine Bilirubin (Auto) Negative (Negative) Urine Urobilinogen (Auto) Normal mg/dL (Normal) Urine Leukocyte Esterase (Auto) Small (Negative) Urine RBC Occ /HPF (0-2) Urine WBC 1-4 /HPF (0-4) Urine Squamous Epithelial Cells Mod /LPF Urine Transitional Epithelial Cells Occ /LPF Urine Renal Epithelial Cells Occ /LPF Urine Bacteria 0 /HPF (0-FEW) White Blood Count 8.0 x10^3/uL (4.0-11.0) Red Blood Count 4.93 x10^6/uL (3.50-5.40) Hemoglobin 14.7 g/dL (12.0-15.5) Hematocrit 44.7 % (36.0-47.0) Mean Corpuscular Volume 91 fL (79-100) Mean Corpuscular Hemoglobin 30 pg (25-35) Mean Corpuscular Hemoglobin Concent 33 g/dL (31-37) Red Cell Distribution Width 14.0 % (11.5-14.5) Platelet Count 263 x10^3/uL (140-400) Neutrophils (%) (Auto) 61 % (31-73) Lymphocytes (%) (Auto) 21 % (24-48) L Monocytes (%) (Auto) 10 % (0-9) H Eosinophils (%) (Auto) 7 % (0-3) H Basophils (%) (Auto) 1 % (0-3) Neutrophils # (Auto) 4.9 x10^3/uL (1.8-7.7) Lymphocytes # (Auto) 1.7 x10^3/uL (1.0-4.8) Monocytes # (Auto) 0.8 x10^3/uL (0.0-1.1) Eosinophils # (Auto) 0.5 x10^3/uL (0.0-0.7) Basophils # (Auto) 0.1 x10^3/uL (0.0-0.2) Prothrombin Time 15.9 SEC (11.7-14.0) H Prothrombin Time INR 1.3 (0.8-1.1) H Activated Partial Thromboplast Time 34 SEC (24-38) Sodium Level 138 mmol/L (136-145) Potassium Level 4.4 mmol/L (3.5-5.1) Chloride Level 104 mmol/L (98-107) Carbon Dioxide Level 22 mmol/L (21-32) Anion Gap 12 (6-14) Blood Urea Nitrogen 45 mg/dL (7-20) H Creatinine 1.3 mg/dL (0.6-1.0) H Estimated GFR (Cockcroft-Gault) 39.7 BUN/Creatinine Ratio 35 (6-20) H Glucose Level 101 mg/dL (70-99) H Calcium Level 10.1 mg/dL (8.5-10.1) Total Bilirubin 1.0 mg/dL (0.2-1.0) Aspartate Amino Transferase (AST) 24 U/L (15-37) Alanine Aminotransferase (ALT) 24 U/L (14-59) Alkaline Phosphatase 86 U/L (46-116) Troponin I High Sensitivity 11 ng/L (4-50) TY-Sex-D-Type Natriuretic Peptide 1226 pg/mL (0-449) H Total Protein 8.3 g/dL (6.4-8.2) H Albumin 3.8 g/dL (3.4-5.0) Albumin/Globulin Ratio 0.8 (1.0-1.7) L Thyroid Stimulating Hormone (TSH) 6.686 uIU/mL (0.358-3.74) H Laboratory Tests 07/27/21 11:30 Laboratory Tests 07/27/21 11:30 ECHOCARDIOGRAM ECHOCARDIOGRAM <Conclusion> The left ventricular systolic function is normal and the ejection fraction is within normal range. The Ejection Fraction is 55%. There is normal LV segmental wall motion. The ascending aorta is mildly dilated measuring 3.9 cm. DATE: 01/25/21 [id number] 0 STRESS TEST STRESS TEST Conclusion 1. No EKG evidence of stress-induced ischemia. 2. Stress images show no evidence of defects. There is no reversible ischemia or infarct. 3. Left ventricular systolic function is normal with an ejection fraction of 69%. 4. Low risk Lexiscan nuclear stress test. DATE: 06/29/20 [id number] 0 ASSESSMENT/PLAN ASSESSMENT/PLAN 1. PAFIB presenting with RVR. converted back to SR follow metoprolol lVP and has maintained. 2. HTN ;controlled 3. Mild KE 4. Hypothyroidism; as per PCP Recommendations Metoprolol for rate control Consider addition of amiodarone for rhythm maintenance. Will d/w primary grooving lathe tender. Eliquis for stroke prophylaxis ALANIS RAMIREZ MD 07/27/21 [id number]: CARDIAC CONSULT ASSESSMENT/PLAN ASSESSMENT/PLAN Agree with SERVICE OPERATOR's assessment and plan. PAF presently back in SR Start amiodarone for antiarrhythmic therapy and eliquis for stroke prophylaxis Thank you for your consultation\\\\\\\\\\\\\ SILVINA HEADLEY APRN Jul 27, 2021 13:48 ALANIS RAMIREZ MD Jul 27, 2021 23:09
[2021-07-27 15:03] VITALS: BP 133/71
--- NOTE | 2021-07-27 23:34 | EKG ---
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
== END 2021-07-27 15:28 | disposition home or self-care (01) ==
LOC: ER 10:44
DX: I48.20 Chronic atrial fibrillation, unspecified (principal); I10 Essential (primary) hypertension; Z88.6 Allergy status to analgesic agent; Z88.8 Allergy status to other drugs, medicaments and biological substances
CPT/HCPCS: 36415; 71045; 80053; 81001; 83880; 84443; 84484; 85025; 85610; 85730; 87086; 93005; 96361; 96374; 99285; J3490; J7030